=== PATIENT | female | born 1975 | race Hispanic/Latino ===

== ENCOUNTER 2018-12-01 09:44 | Emergency (ER) | payer OTHER ==
--- NOTE | 2018-12-01 10:38 | EDPHYS ---
Physician Documentation [facility] Name: Antonio Keyes Age: 43 yrs Sex: Female : 1975 Arrival Date: 12/01/2018 Time: 09:47 Bed 14 Private MD: ED Physician Jong Mccoy HPI: 12/01 10:34 This 43 yrs old Female presents to ER via Ambulatory with complaints of Boil. jmm 10:34 The patient presents with an abscess of the back. Onset: The symptoms/episode jmm began/occurred gradually. Possible cause(s): unknown. This is a 43 year old female with a history of htn that presents to the ED with complaints of a draining abscess which ruptured last night. Patient states she experienced immediate relief. Denies fever or chills. . 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 - Social history:: Smoking status: Patient/guardian denies using tobacco, Patient/guardian denies using alcohol, street drugs. - Ebola Screening: : Patient negative for fever greater than or equal to 101.5 degrees Fahrenheit, and additional compatible Ebola Virus Disease symptoms Patient denies exposure to infectious person Patient denies travel to an Ebola-affected area in the 21 days before illness onset No symptoms or risks identified at this time. ROS: 10:34 Constitutional: Negative for fever, chills, and weight loss, Cardiovascular: Negative jmm for chest pain, palpitations, and edema, Respiratory: Negative for shortness of breath, cough, wheezing, and pleuritic chest pain. 10:34 Skin: Positive for abscess. 10:34 All other systems are negative. Exam: 10:34 Constitutional: This is a well developed, well nourished patient who is awake, alert, jmm and in no acute distress. Head/Face: atraumatic. Eyes: EOMI, no conjunctival erythema appreciated ENT: Moist Mucus Membranes Neck: Trachea midline, Supple Chest/axilla: Normal chest wall appearance and motion. Cardiovascular: Regular rate and rhythm. No edema appreciated Respiratory: Normal respirations, no respiratory distress appreciated Abdomen/GI: Non distended, soft Back: Normal ROM 10:34 Skin: a small non fluctuant abscess is noted at the right lower back, no surrounding erythema or induration is appreciated. Non tender to palpation. 10:34 Neuro: Orientation: is normal, Mentation: is normal, Memory: is normal. 10:34 Psych: Behavior/mood is pleasant, cooperative. Vital Signs: 10:07 BP 148 / 80; Pulse 67; Resp 17; Pulse Ox 99% on R/A; Weight 81.65 kg; Height 5 ft. 4 sg in. (162.56 cm); Pain 3/10; 10:07 Body Mass Index 30.90 (81.65 kg, 162.56 cm) MDM: 10:33 Patient medically screened. [facility] 10:37 Data reviewed: vital signs, nurses notes. Counseling: I had a detailed discussion with daniel the patient and/or guardian regarding: the historical points, exam findings, and any diagnostic results supporting the discharge/admit diagnosis, the need for outpatient follow up, to return to the emergency department if symptoms worsen or persist or if there are any questions or concerns that arise at home. ED course: patient is alert and non toxic in appearance in the ED. Patient advised to follow up with pcp for reevaluation and otherwise given strict return precautions. patient understood and agrees with the plan of care. . Administered Medications: No medications were administered Disposition: 12/01/18 10:38 Discharged to Home. Impression: Cutaneous abscess of back [any part, except buttock]. - Condition is Stable. - Discharge Instructions: Skin Abscess. - Prescriptions for Bactrim DS 800- 160 mg Oral Tablet - take 1 tablet by ORAL route every 12 hours for 7 days; 14 tablet. - Medication Reconciliation Form, Thank You Letter, Antibiotic Education, Prescription Opioid Use form. - Follow up: Private Physician; When: 2 - 3 days; Reason: Recheck today's complaints, Continuance of care, Re-evaluation by your physician. Addendum: 12/03/2018 09:50 Co-signature as Attending Physician, Jong Mccoy MD I agree with the assessment and k dr plan of care. Signatures: Ricardo Bach RN RN sg Rittger, Kevin, MD MD kdr Mickail, Joel, PA PA jmm Malcolm, Ervin, RN RN rv Corrections: (The following items were deleted from the chart) 12/01 10:44 10:38 12/01/2018 10:38 Discharged to Home. Impression: Cutaneous abscess of back [any rv part, except buttock]. Condition is Stable. Forms are Medication Reconciliation Form, Thank You Letter, Antibiotic Education, Prescription Opioid Use. Follow up: Private Physician; When: 2 - 3 days; Reason: Recheck today's complaints, Continuance of care, Re-evaluation by your physician. marry
--- NOTE | 2018-12-01 10:38 | ER ---
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 concerned for staph infection and has a sx scheduled, a hysterectomy soon. Transition of care: patient was not received from another setting of care. Onset of symptoms was December 01, 2018. Risk Assessment: Do you want to hurt yourself or someone else? Patient reports no desire to harm self or others. Initial Sepsis Screen: Does the patient meet any 2 criteria? No. Patient's initial sepsis screen is negative. Does the patient have a suspected source of infection? Yes: Skin breakdown/wound. Care prior to arrival: None. 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 - Social history:: Smoking status: Patient/guardian denies using tobacco, Patient/guardian denies using alcohol, street drugs. - Ebola Screening: : Patient negative for fever greater than or equal to 101.5 degrees Fahrenheit, and additional compatible Ebola Virus Disease symptoms Patient denies exposure to infectious person Patient denies travel to an Ebola-affected area in the 21 days before illness onset No symptoms or risks identified at this time. Screenin:43 Abuse screen: Denies threats or abuse. Denies injuries from another. Nutritional rv screening: No deficits noted. Tuberculosis screening: No symptoms or risk factors identified. Fall Risk None identified. Assessment: 10:41 General: Appears in no apparent distress. comfortable, Behavior is calm, cooperative. rv Pain:. 10:42 Pain: Complains of pain in low back area. Neuro: Level of Consciousness is awake, rv alert, obeys commands, Oriented to person, place, time, situation. Cardiovascular: Patient's skin is warm and dry. Respiratory: Airway is patent. GI: No signs and/or symptoms were reported involving the gastrointestinal system. : No signs and/or symptoms were reported regarding the genitourinary system. EENT: No signs and/or symptoms were reported regarding the EENT system. Derm: Skin is intact. Musculoskeletal: No signs and/or symptoms reported regarding the musculoskeletal system. Vital Signs: 10:07 BP 148 / 80; Pulse 67; Resp 17; Pulse Ox 99% on R/A; Weight 81.65 kg; Height 5 ft. 4 sg in. (162.56 cm); Pain 3/10; 10:07 Body Mass Index 30.90 (81.65 kg, 162.56 cm) ED Course: 09:47 Patient arrived in ED. rg4 10:02 Cheko Mosquera PA is PHCP. [facility] 10:02 Jong Mccoy MD is Attending Physician. [facility] 10:07 Triage completed. sg 10:08 Arm band placed on. sg 10:39 Ervin Fowler RN is Primary Nurse. rv 10:43 Patient has correct armband on for positive identification. Bed in low position. Call rv light in reach. Cardiac monitoring not applicable on this patient. 10:43 No provider procedures requiring assistance completed. Patient did not have IV access rv during this emergency room visit. Administered Medications: No medications were administered Outcome: 10:38 Discharge ordered by . [facility] 10:43 Discharged to home ambulatory. rv 10:43 Condition: good 10:43 Discharge instructions given to patient, Instructed on discharge instructions, follow up and referral plans. medication usage, Demonstrated understanding of instructions, follow-up care, medications, Prescriptions given X 1. 10:44 Patient left the ED. rv Signatures: Ricardo Bach, RN RN Cheko Mosquera PA PA jmm Garcia, Rubi rg4 Ervin Fowler RN RN rv Corrections: (The following items were deleted from the chart) 10:43 10:41 General: Appears in no apparent distress. comfortable, Behavior is calm, rv cooperative, rv
[2018-12-01 10:56] VITALS: BP 148/80; O2SAT 99
== END 2018-12-01 10:44 | disposition home or self-care (01) ==
LOC: ER 09:44
DX: L02.212 Cutaneous abscess of back [any part, except buttock and flank] (principal); I10 Essential (primary) hypertension
CPT/HCPCS: 99281

== ENCOUNTER 2021-04-05 18:29 | Emergency (ER) | payer BC, OTHER ==
--- OUTSIDE RECORDS SUMMARY | 2021-04-05 18:32 | XMS REPORT | Continuity of Care Document ---
:1975 Author Organization [facility] t Address [address] [place] [address] Care Team Providers Name Role Phone JOHNNY SANTANA Attending Clinician Unavailable SOMMER Attending Clinician Unavailable HERBERT KNOX Admitting Clinician Unavailable Payers Payer Name Policy Type Policy Number Effective Date Expiration Date S ource Problems This patient has no known problems. Allergies, Adverse Reactions, Alerts Allergy Allergy Status Severity Reaction(s) Onset Inactive Treating Comm ents Source Name Type Date Date Clinician No Known DA Active [facility] NO KNOWN Allergy Active [facility] Medications This patient has no known medications. Vital Signs Vital Name Observation Time Observation Value Comments Source HEIGHT 2019-09-05 00:00:00 154.9 cm WEIGHT 2019-09-05 00:00:00 70.761 kg HEIGHT 2019-09-05 00:00:00 154.9 cm WEIGHT 2019-09-05 00:00:00 70.761 kg Procedures This patient has no known procedures. Encounters Start End Encounter Admission Attending Care Care Encounter Source Date/Time Date/Time Type Type Clinicians Facility Department ID 2019-09-05 2019-09-05 Emergency ER [facility] Emergency [id number] [facility] 17:57:00 17:57:00 2019-08-31 2019-08-31 Emergency [facility] [id number] [place] 00:00:00 00:00:00 [facility] [address] Results Test Description Test Time Test Comments Results Result Comments Source OVA AND PARASITE EXAMINATION 2019-09-10 23:29:00 Test Item Value Reference Range Interpretation Comme nts DIRECT SMEAR - O\\T\\P (BEAKER) No ova or parasites seen No ova or parasites seen (test code = 196) BLOOD [id number] 22:00:00 Test Item Value Reference Range Interpretation Comments CULTURE (BEAKER) (test No growth in 5 days code = 1095) BLOOD [id number] 22:00:00 Test Item Value Reference Range Interpretation Comments CULTURE (BEAKER) (test No growth in 5 days code = 1095) TISSUE [id number] 10:13:00Surgical Pathology Report Case: [id number] Authorizing Provider: Yoel Baker MD Collected: 09/09/2019 12:13 PM Ordering Location: [address] Med/Surg Received: 09/09/2019 01:08 PM Pathologist: Clayton Dumont MD Specimens: A) - Small Bowel, NOS B) - Large Intestine, Colon - Right/Ascending C) - Large Intestine, Colon - Transverse D) - Large Intestine, Colon - Sigmoid A. SMALL BOWEL, BIOPSY: -EXUBERANT LYMPHOID FOLLICLE FORMATION IN THE SUBMUCOSAB. COLON, RIGHT/ASCENDING, BIOPSY: -NO SPECIFIC PATHOLOGIC CHANGEC. COLON, TRANSVERSE, BIOPSY: -NO SPECIFIC PATHOLOGIC CHANGED. COLON, SIGMOID, BIOPSY: -SUBMUCOSAL LYMPHOID AGREGGATE FORMATION Signing Pathologist Direct Phone Line: [phone] signed by Clayton Dumont MD on 09/10/2019 at 10:13 [id number] A is labeled "small bowel" and is received in a formalin-filled container labeled with thepatient's name and surgical pathology number. The specimen consists of two small fragments of crawley soft tissue that measures 0.2 x 0.1 x 0.3 cm in aggregate. The specimen is submitted in its entirety inone cassette. Part B is labeled "large intestine, right ascending" and is received in a formalin-filled container labeled with the patient's name and surgical pathology number. The specimen consists offour small fragment crawley soft tissue that measures 0.4 x 0.2 x 0.1 cm in aggregate. The specimen is is submitted in its entirety. Part C is labeled "large intestine, colon transverse" and is received in a formalin-filled container labeled with the patient's name and surgical pathology number. The specimen consists of two small fragments of crawley soft tissue that measures 0.3 x 0.2 x 0.1 cm in aggregate. The specimen is submitted in its entirety in one cassette. Part D is labeled "large intestine, colon, biopsy" and is received in a formalin-filled container labeled with the patient's name and surgical pathologic number. The specimen consists of three small fragments of crawley-soft tissue that measures0.3 x 0.2 x 0.1 cm in aggregate. The specimen is submitted in its entirety in one cassette. G/Nay. PerformedCOMPREHENSIVE METABOLIC [id number] 05:18:00 Test Item Value Reference Range Interpretation Comments TOTAL PROTEIN 5.9 gm/dL 6.0-8.5 L (BEAKER) (test code = 770) ALBUMIN (BEAKER) 3.7 g/dL 3.5-5.0 (test code = 1145) ALKALINE PHOSPHATASE 51 U/L 30-115 (BEAKER) (test code = 346) BILIRUBIN TOTAL 0.4 mg/dL 0.1-1.2 (BEAKER) (test code = 377) SODIUM (BEAKER) (test 142 meq/L 135-148 code = 381) POTASSIUM (BEAKER) 3.4 meq/L 3.6-5.5 L (test code = 379) CHLORIDE (BEAKER) 111 meq/L 98-106 H (test code = 382) CO2 (BEAKER) (test 22 meq/L 20-29 code = 355) BLOOD UREA NITROGEN 3 mg/dL 10-26 L (BEAKER) (test code = 354) CREATININE (BEAKER) 0.59 mg/dL 0.50-1.20 (test code = 358) GLUCOSE RANDOM 96 mg/dL 70-110 (BEAKER) (test code = 652) CALCIUM (BEAKER) 8.4 mg/dL 8.5-10.5 L (test code = 697) AST (SGOT) (BEAKER) 23 U/L 5-40 (test code = 353) ALT (SGPT) (BEAKER) 36 U/L 5-50 (test code = 347) EGFR (BEAKER) (test 111 ESTIMATE D GFR IS code = 1092) mL/min/1.73 sq NOT ACCURA TE m CREATININE CLEARANCE IN PREDICTING GLOMERULAR FILTRATION RATE . ESTIMATED GFR I S NOT APPLICABLE FOR DIALYSIS PATIEN TS. Platform Mill Supervisor ID - [id number] W/PLT COUNT & AUTO [id number] 04:52:00 Test Item Value Reference Range Interpretation Comments WHITE BLOOD CELL COUNT (BEAKER) 5.7 K/ L 4.0-10.0 (test code = 775) RED BLOOD CELL COUNT (BEAKER) 4.18 M/ L 4.00-5.00 (test code = 761) HEMOGLOBIN (BEAKER) (test code = 11.3 GM/DL 12.0-15.5 L 410) HEMATOCRIT (BEAKER) (test code = 35.1 % 36.0-46.0 L 411) MEAN CORPUSCULAR VOLUME (BEAKER) 84.0 fL 82.0-99.0 (test code = 753) MEAN CORPUSCULAR HEMOGLOBIN 27.0 pg 27.0-33.0 (BEAKER) (test code = 751) MEAN CORPUSCULAR HEMOGLOBIN CONC 32.2 GM/DL 32.0-36.0 (BEAKER) (test code = 752) RED CELL DISTRIBUTION WIDTH 13.3 % 12.0-15.0 (BEAKER) (test code = 412) PLATELET COUNT (BEAKER) (test 195 K/CU MM 150-430 code = 756) MEAN PLATELET VOLUME (BEAKER) 10.4 fL 6.0-11.5 (test code = 754) NUCLEATED RED BLOOD CELLS 0 /100 WBC 0-0 (BEAKER) (test code = 413) NEUTROPHILS RELATIVE PERCENT 53 % (BEAKER) (test code = 429) LYMPHOCYTES RELATIVE PERCENT 36 % (BEAKER) (test code = 430) MONOCYTES RELATIVE PERCENT 6 % (BEAKER) (test code = 431) EOSINOPHILS RELATIVE PERCENT 4 % (BEAKER) (test code = 432) BASOPHILS RELATIVE PERCENT 1 % (BEAKER) (test code = 437) NEUTROPHILS ABSOLUTE COUNT 3.04 K/ L 1.80-8.00 (BEAKER) (test code = 670) LYMPHOCYTES ABSOLUTE COUNT 2.08 K/ L 1.48-4.50 (BEAKER) (test code = 414) MONOCYTES ABSOLUTE COUNT (BEAKER) 0.34 K/ L 0.00-1.30 (test code = 415) EOSINOPHILS ABSOLUTE COUNT 0.23 K/ L 0.00-0.50 (BEAKER) (test code = 416) BASOPHILS ABSOLUTE COUNT (BEAKER) 0.03 K/ L 0.00-0.20 (test code = 417) IMMATURE GRANULOCYTES-RELATIVE 0 % 0-0 PERCENT (BEAKER) (test code = 2801) CT, [id number] 12:44:00FINAL REPORT CT of the abdomen and pelvis, without contrast Clinical History: Diarrhea Technique: CT of the abdomen and pelvis is performed without intravenous contrast administration. This exam was performed according to our departmental dose optimization program which includes automated exposure control, adjustment of the mA and/or kV according to patient's size and/or use of iterative reconstructive technique. Comparison Film: None Discussion: Visualized lower thorax is unremarkable. No liver lesion is identified on this noncontrast exam. There is no biliary ductal dilatation, gallbladder is normal. The spleen, pancreas, and adrenal glands are unremarkable. Kidneys demonstrate no hydronephrosis, contour deforming lesion, or radiopaque stone. No bowel obstruction. Note bowel evaluation is suboptimal in the absence of IV and oral contrast. Question mild wall thickening versus underdistention of the descending colon, and sigmoid colon. Appendix appears normal. In the pelvis, bladder is unremarkable. Uterus is absent. No adnexal mass. There is trace pelvic free fluid, of uncertain etiology. No free air, or lymphadenopathy. Osseous structures are intact. Impression: Question mild wall thickening versus underdistention of the descending and sigmoid colon, correlate clinically for colitis. Trace pelvic free fluid, etiology is unclear. No abscess or drainable collection.Signed: Farshad Ocaiso MDReport Verified Date/Time: 09/08/2019 12:44:21 Reading Location: [facility] C013X [facility] Consult Reading Room -COV2/RT-PCR ([facility])2019-09-08 08:28:00 Test Item Value Reference Range Interpretation Comments SARS-COV2/RT-PCR (test code = Negative Not Detected, Negative [id number]) SARS-COV-2 PERFORMING LAB CPL (test code = 0278990) STOOL CULTURE + SHIGA [id number] 08:19:00 Test Item Value Reference Range Interpretation Comments CULTURE (BEAKER) No Salmonella, Shigella (test code = 1095) or Campylobacter isolated COMPREHENSIVE METABOLIC [id number] 06:10:00 Test Item Value Reference Range Interpretation Comments TOTAL PROTEIN 5.6 gm/dL 6.0-8.5 L Specimen sligh tly (BEAKER) (test code = hemoly zed 770) ALBUMIN (BEAKER) 3.5 g/dL 3.5-5.0 Specimen sl ightly (test code = 1145) hemolyzed ALKALINE PHOSPHATASE 48 U/L 30-115 (BEAKER) (test code = 346) BILIRUBIN TOTAL 0.4 mg/dL 0.1-1.2 Specimen sli ghtly (BEAKER) (test code = hemoly zed 377) SODIUM (BEAKER) (test 141 meq/L 135-148 code = 381) POTASSIUM (BEAKER) 3.6 meq/L 3.6-5.5 Specimen slightly (test code = 379) hemolyzed CHLORIDE (BEAKER) 111 meq/L 98-106 H (test code = 382) CO2 (BEAKER) (test 21 meq/L 20-29 code = 355) BLOOD UREA NITROGEN 5 mg/dL 10-26 L (BEAKER) (test code = 354) CREATININE (BEAKER) 0.59 mg/dL 0.50-1.20 Specimen slightly (test code = 358) hemolyzed GLUCOSE RANDOM 99 mg/dL 70-110 (BEAKER) (test code = 652) CALCIUM (BEAKER) 8.2 mg/dL 8.5-10.5 L (test code = 697) AST (SGOT) (BEAKER) 21 U/L 5-40 Specimen slightly (test code = 353) hemolyzed ALT (SGPT) (BEAKER) 32 U/L 5-50 Specimen slightly (test code = 347) hemolyzed EGFR (BEAKER) (test 111 ESTIMATE D GFR IS code = 1092) mL/min/1.73 sq NOT ACCURA TE m CREATININE CLEARANCE IN PREDICTING GLOMERULAR FILTRATION RATE . ESTIMATED GFR I S NOT APPLICABLE FOR DIALYSIS PATIEN TS. Platform Mill Supervisor ID - AGONZALEZCBC W/PLT COUNT & AUTO [id number] 05:42:00 Test Item Value Reference Range Interpretation Comments WHITE BLOOD CELL COUNT (BEAKER) 5.4 K/ L 4.0-10.0 (test code = 775) RED BLOOD CELL COUNT (BEAKER) 4.15 M/ L 4.00-5.00 (test code = 761) HEMOGLOBIN (BEAKER) (test code = 11.2 GM/DL 12.0-15.5 L 410) HEMATOCRIT (BEAKER) (test code = 35.0 % 36.0-46.0 L 411) MEAN CORPUSCULAR VOLUME (BEAKER) 84.3 fL 82.0-99.0 (test code = 753) MEAN CORPUSCULAR HEMOGLOBIN 27.0 pg 27.0-33.0 (BEAKER) (test code = 751) MEAN CORPUSCULAR HEMOGLOBIN CONC 32.0 GM/DL 32.0-36.0 (BEAKER) (test code = 752) RED CELL DISTRIBUTION WIDTH 13.2 % 12.0-15.0 (BEAKER) (test code = 412) PLATELET COUNT (BEAKER) (test 200 K/CU MM 150-430 code = 756) MEAN PLATELET VOLUME (BEAKER) 10.3 fL 6.0-11.5 (test code = 754) NUCLEATED RED BLOOD CELLS 0 /100 WBC 0-0 (BEAKER) (test code = 413) NEUTROPHILS RELATIVE PERCENT 53 % (BEAKER) (test code = 429) LYMPHOCYTES RELATIVE PERCENT 35 % (BEAKER) (test code = 430) MONOCYTES RELATIVE PERCENT 7 % (BEAKER) (test code = 431) EOSINOPHILS RELATIVE PERCENT 5 % (BEAKER) (test code = 432) BASOPHILS RELATIVE PERCENT 1 % (BEAKER) (test code = 437) NEUTROPHILS ABSOLUTE COUNT 2.83 K/ L 1.80-8.00 (BEAKER) (test code = 670) LYMPHOCYTES ABSOLUTE COUNT 1.87 K/ L 1.48-4.50 (BEAKER) (test code = 414) MONOCYTES ABSOLUTE COUNT (BEAKER) 0.37 K/ L 0.00-1.30 (test code = 415) EOSINOPHILS ABSOLUTE COUNT 0.24 K/ L 0.00-0.50 (BEAKER) (test code = 416) BASOPHILS ABSOLUTE COUNT (BEAKER) 0.06 K/ L 0.00-0.20 (test code = 417) IMMATURE GRANULOCYTES-RELATIVE 0 % 0-0 PERCENT (BEAKER) (test code = 2801) POCT-GLUCOSE [id number] 10:23:00 Test Item Value Reference Range Interpretation Comments POC-GLUCOSE METER 83 mg/dL 70-110 : TESTED A T [facility] 1317 (BEAKER) (test code = [address]) [facility] 77 478: Platform Mill Supervisor/Techni blanquita ID = [id number] for Tika Gonzalez COMPREHENSIVE METABOLIC [id number] 06:15:00 Test Item Value Reference Range Interpretation Comments TOTAL PROTEIN 6.4 gm/dL 6.0-8.5 (BEAKER) (test code = 770) ALBUMIN (BEAKER) 4.0 g/dL 3.5-5.0 (test code = 1145) ALKALINE PHOSPHATASE 60 U/L 30-115 (BEAKER) (test code = 346) BILIRUBIN TOTAL 0.6 mg/dL 0.1-1.2 (BEAKER) (test code = 377) SODIUM (BEAKER) (test 140 meq/L 135-148 code = 381) POTASSIUM (BEAKER) 3.2 meq/L 3.6-5.5 L (test code = 379) CHLORIDE (BEAKER) 106 meq/L 98-106 (test code = 382) CO2 (BEAKER) (test 21 meq/L 20-29 code = 355) BLOOD UREA NITROGEN 7 mg/dL 10-26 L (BEAKER) (test code = 354) CREATININE (BEAKER) 0.66 mg/dL 0.50-1.20 (test code = 358) GLUCOSE RANDOM 87 mg/dL 70-110 (BEAKER) (test code = 652) CALCIUM (BEAKER) 9.0 mg/dL 8.5-10.5 (test code = 697) AST (SGOT) (BEAKER) 40 U/L 5-40 (test code = 353) ALT (SGPT) (BEAKER) 50 U/L 5-50 (test code = 347) EGFR (BEAKER) (test 97 mL/min/1.73 ESTIMA LOBO GFR IS code = 1092) sq m NOT ACCURATE CREATININE CLEARANCE IN PREDICTING GLOMERULAR FILTRATION RATE . ESTIMATED GFR I S NOT APPLICABLE FOR DIALYSIS PATIEN TS. Platform Mill Supervisor ID - [id number] W/PLT COUNT & AUTO [id number] 05:52:00 Test Item Value Reference Range Interpretation Comments WHITE BLOOD CELL COUNT (BEAKER) 6.7 K/ L 4.0-10.0 (test code = 775) RED BLOOD CELL COUNT (BEAKER) 4.78 M/ L 4.00-5.00 (test code = 761) HEMOGLOBIN (BEAKER) (test code = 12.8 GM/DL 12.0-15.5 410) HEMATOCRIT (BEAKER) (test code = 39.8 % 36.0-46.0 411) MEAN CORPUSCULAR VOLUME (BEAKER) 83.3 fL 82.0-99.0 (test code = 753) MEAN CORPUSCULAR HEMOGLOBIN 26.8 pg 27.0-33.0 L (BEAKER) (test code = 751) MEAN CORPUSCULAR HEMOGLOBIN CONC 32.2 GM/DL 32.0-36.0 (BEAKER) (test code = 752) RED CELL DISTRIBUTION WIDTH 13.3 % 12.0-15.0 (BEAKER) (test code = 412) PLATELET COUNT (BEAKER) (test 243 K/CU MM 150-430 code = 756) MEAN PLATELET VOLUME (BEAKER) 10.3 fL 6.0-11.5 (test code = 754) NUCLEATED RED BLOOD CELLS 0 /100 WBC 0-0 (BEAKER) (test code = 413) NEUTROPHILS RELATIVE PERCENT 63 % (BEAKER) (test code = 429) LYMPHOCYTES RELATIVE PERCENT 26 % (BEAKER) (test code = 430) MONOCYTES RELATIVE PERCENT 7 % (BEAKER) (test code = 431) EOSINOPHILS RELATIVE PERCENT 3 % (BEAKER) (test code = 432) BASOPHILS RELATIVE PERCENT 1 % (BEAKER) (test code = 437) NEUTROPHILS ABSOLUTE COUNT 4.18 K/ L 1.80-8.00 (BEAKER) (test code = 670) LYMPHOCYTES ABSOLUTE COUNT 1.76 K/ L 1.48-4.50 (BEAKER) (test code = 414) MONOCYTES ABSOLUTE COUNT (BEAKER) 0.47 K/ L 0.00-1.30 (test code = 415) EOSINOPHILS ABSOLUTE COUNT 0.22 K/ L 0.00-0.50 (BEAKER) (test code = 416) BASOPHILS ABSOLUTE COUNT (BEAKER) 0.05 K/ L 0.00-0.20 (test code = 417) IMMATURE GRANULOCYTES-RELATIVE 0 % 0-0 PERCENT (BEAKER) (test code = 2801) POCT-GLUCOSE [id number] 22:13:00 Test Item Value Reference Range Interpretation Comments POC-GLUCOSE METER 117 mg/dL 70-110 H : TESTED A T [facility] 1317 (BEAKER) (test code [address], = 1538) [facility] 77 478: Platform Mill Supervisor/Techni blanquita ID = [id number] for Matthew Raman STOOL PATH [id number] 11:33:00 Test Item Value Reference Range Interpretation Comments PATHOGEN EXAM CHARGED (BEAKER) (test Done code = 2381) SHIGA TOXIN [id number] 11:32:00 Test Item Value Reference Range Interpretation Comments SHIGA TOXIN 1 (BEAKER) (test Not detected Not detected code = 2177) SHIGA TOXIN 2 (BEAKER) (test Not detected Not detected code = 2179) C. DIFFICILE GDH [id number] 20:35:00 Test Item Value Reference Range Interpretation Comments CDT TOXIN (test code Negative Negative = [id number]) CDT GDH ANTIGEN (test Negative Negative No ind ication of code = [id number]) Clostridi um difficile infection and n o colonization. Discontinue ent jelani isolation and t herapy. Testing performed by [employer] Rapid Cassette Assay. For GDH, published sensitivity of the assay is 98.7% compared to cytotoxicity testing. For Toxin AB, published sensitivity is 87.8% and specificity 99.4% compared to cytotoxicity testing.Verification of kit performance was done by the [facility] Microbiology Lab prior to clinical use.COMPREHENSIVE METABOLIC [id number] 20:02:00 Test Item Value Reference Range Interpretation Comments TOTAL PROTEIN 7.5 gm/dL 6.0-8.5 (BEAKER) (test code = 770) ALBUMIN (BEAKER) 4.7 g/dL 3.5-5.0 (test code = 1145) ALKALINE PHOSPHATASE 66 U/L 30-115 (BEAKER) (test code = 346) BILIRUBIN TOTAL 0.8 mg/dL 0.1-1.2 (BEAKER) (test code = 377) SODIUM (BEAKER) (test 142 meq/L 135-148 code = 381) POTASSIUM (BEAKER) 3.6 meq/L 3.6-5.5 (test code = 379) CHLORIDE (BEAKER) 105 meq/L 98-106 (test code = 382) CO2 (BEAKER) (test 24 meq/L 20-29 code = 355) BLOOD UREA NITROGEN 10 mg/dL 10-26 (BEAKER) (test code = 354) CREATININE (BEAKER) 0.73 mg/dL 0.50-1.20 (test code = 358) GLUCOSE RANDOM 87 mg/dL 70-110 (BEAKER) (test code = 652) CALCIUM (BEAKER) 9.9 mg/dL 8.5-10.5 (test code = 697) AST (SGOT) (BEAKER) 20 U/L 5-40 (test code = 353) ALT (SGPT) (BEAKER) 28 U/L 5-50 (test code = 347) EGFR (BEAKER) (test 87 mL/min/1.73 ESTIMA LOBO GFR IS code = 1092) sq m NOT ACCURATE CREATININE CLEARANCE IN PREDICTING GLOMERULAR FILTRATION RATE . ESTIMATED GFR I S NOT APPLICABLE FOR DIALYSIS PATIEN TS. Platform Mill Supervisor ID - JUSTINCBC W/PLT COUNT & AUTO [id number] 19:44:00 Test Item Value Reference Range Interpretation Comments WHITE BLOOD CELL COUNT (BEAKER) 8.6 K/ L 4.0-10.0 (test code = 775) RED BLOOD CELL COUNT (BEAKER) 5.15 M/ L 4.00-5.00 H (test code = 761) HEMOGLOBIN (BEAKER) (test code = 13.9 GM/DL 12.0-15.5 410) HEMATOCRIT (BEAKER) (test code = 43.1 % 36.0-46.0 411) MEAN CORPUSCULAR VOLUME (BEAKER) 83.7 fL 82.0-99.0 (test code = 753) MEAN CORPUSCULAR HEMOGLOBIN 27.0 pg 27.0-33.0 (BEAKER) (test code = 751) MEAN CORPUSCULAR HEMOGLOBIN CONC 32.3 GM/DL 32.0-36.0 (BEAKER) (test code = 752) RED CELL DISTRIBUTION WIDTH 13.3 % 12.0-15.0 (BEAKER) (test code = 412) PLATELET COUNT (BEAKER) (test 272 K/CU MM 150-430 code = 756) MEAN PLATELET VOLUME (BEAKER) 10.1 fL 6.0-11.5 (test code = 754) NUCLEATED RED BLOOD CELLS 0 /100 WBC 0-0 (BEAKER) (test code = 413) NEUTROPHILS RELATIVE PERCENT 68 % (BEAKER) (test code = 429) LYMPHOCYTES RELATIVE PERCENT 25 % (BEAKER) (test code = 430) MONOCYTES RELATIVE PERCENT 5 % (BEAKER) (test code = 431) EOSINOPHILS RELATIVE PERCENT 1 % (BEAKER) (test code = 432) BASOPHILS RELATIVE PERCENT 1 % (BEAKER) (test code = 437) NEUTROPHILS ABSOLUTE COUNT 5.84 K/ L 1.80-8.00 (BEAKER) (test code = 670) LYMPHOCYTES ABSOLUTE COUNT 2.13 K/ L 1.48-4.50 (BEAKER) (test code = 414) MONOCYTES ABSOLUTE COUNT (BEAKER) 0.47 K/ L 0.00-1.30 (test code = 415) EOSINOPHILS ABSOLUTE COUNT 0.12 K/ L 0.00-0.50 (BEAKER) (test code = 416) BASOPHILS ABSOLUTE COUNT (BEAKER) 0.05 K/ L 0.00-0.20 (test code = 417) IMMATURE GRANULOCYTES-RELATIVE 0 % 0-0 PERCENT (BEAKER) (test code = 2801) UTERUS,OTHER THAN [id number] 12:55:00 RUN DATE: 12/07/18 [facility] PAGE 1 RUN TIME: 1357 Specimen Inquiry RUN USER: INTERFACE PATIENT: AMANDA NOVOA LOC: TERRANCE #: [id number] AGE/SX: 43/F ROOM: [facility] RE12/06/18REG DR: Amalia Bunch MD : 75 BED: A DIS: STATUS: ADM Dwight TLOC: SPEC #: [id number] RECD: 12/06/18 STATUS: CHELSY RE #: [id number] GIANCARLO: 12/06/18- SUBM DR: Amalia Bunch MD ENTERED: 12/06/18 SP TYPE: UTERUSOTH OTHR DR: Joanie Treviño MD ORDERED: LEVEL V SURGICA CODES: [id number] - UTERUS, NOS COPIES TO: Amalia Bunch MD [address] [place] [address] [email or web address] Joanie Treviño MD [address] [place] [address] PROCEDURES: LEVEL V SURGICA (Incomplete) TISSUES: UTERUS, NOS - UTERUS, CERVIX AND LEFT FALLOPIAN TUBE CLINICAL HISTORY 43 year old, uterine fibroids, menorrhagia, pelvic pain (kr) FINAL DIAGNOSIS Uterus, left fallopian tube, hysterectomy and left salpingectomy: cervix - no significant pathologic alteration endometrium - benign, early secretory phase with glandular and stromal breakdown myometrium - leiomyomas uterine serosa - benign fibrous adhesions left fallopian tube - benign paratubal cyst CPT code(s): 52419 lsh/kr dt: 12/07/18 CONTINUED ON NEXT PAGE RUN DATE: 12/07/18 [facility] PAGE 2 RUN TIME: 1357 Specimen Inquiry RUN USER: INTERFACE SPEC #: [id number] PATIENT: AMANDA NOVOA #[id number] (Continued)------ ------ GROSSDESCRIPTION ANATOMIC SOURCE OF TISSUE (per Requisition): Uterus, cervix, left tube The specimen is received in formalin in a container labeled with the patient's name and designated "uterus, cervix, left tube". The specimen consists of a 275 gm, 10.0 x 10.0 x 7.5 cm supracervically amputated fragmented uterus with a detached cervix and a detached 1.0 cm in length and 0.5 cm in diameter fimbriated fallopian tube. The uterine serosa is crawley-pink, hyperemic and nodular with multiple adhesions. The 3.5 cm ectocervix displays a central cm slit-like os. The endometrium is crawley-red and hemorrhagic with a thickness measuring up to .0.1 cm. The myometrium is trabeculated witha wall thickness measuring up to 5.0 cm. There are four well-circumscribed nodules, 1.0 to 4.5 cm. The cut surfaces are crawley and whorled. There are no areas of hemorrhage or necrosis. The fallopian tube is pink-purple and hyperemic with a 1.0 cm clear, serous fluid- filled unremarkable paratubal cyst. The lumen is pinpoint. Section code: A1 - cervix, A2 - anterior endomyometrium, A3 - posterior endomyometrium and nodule, A4 - serosal adhesions, A5 - three nodules, A6 - enti re fallopian tube. oralia 12/06/18 @ 1433 Signed Arelis Mcnulty MD 12/07/18 1255 END OF REPORT HGB [id number] 04:44:00 Test Item Value Reference Range Interpretation Comments HEMOGLOBIN (test code = HGB) 10.6 g/dL 10.7-13.9 L HEMATOCRIT (test code = HCT) 33.0 % 32.1-42.1 N UR HCG [id number] 08:34:00 Test Item Value Reference Range Interpretation Comments UR HCG QUAL (test NEGATIVE 1. Very di lute urine code = HCGQLU) specimens, as indicated by a lowspecific g ravity, may not contain rep resentative levels ofhCG. 2 . False negative result s may occur when the levels of hCGare below the sensi tivity level of the test. If is still suspec lobo, a first morningurine sp ecimen should be colle cted 48 hours later and tested. PROTHROMBIN [id number] 11:09:00 Test Item Value Reference Range Interpretation Comments PROTHROMBIN TIME PATIENT (test code 11.6 secs 10.4-12.4 N = PTP) THROMBOPLASTIN TIME [id number] 11:09:00 Test Item Value Reference Range Interpretation Comments THROMBOPLASTIN TIME PARTIAL (test 33.8 secs 22-38 N code = PTT) HCG SERUM [id number] 10:41:00 Test Item Value Reference Range Interpretation Comments HCG SERUM QUAL (test code = HCGQL) NEGATIVE CBC W/AUTO [id number] 10:25:00 Test Item Value Reference Range Interpretation Comments WHITE BLOOD CELL (test code = WBC) 5.4 K/mm3 6.6-12.1 L RED BLOOD CELL (test code = RBC) 4.92 M/mm3 3.45-5.01 N HEMOGLOBIN (test code = HGB) 12.5 g/dL 10.7-13.9 N HEMATOCRIT (test code = HCT) 40.8 % 32.1-42.1 N MEAN CELL VOLUME (test code = MCV) 83 fL 84.1-94.8 L MEAN CELL HGB (test code = MCH) 25.4 pg 27-35 L MEAN CELL HGB CONCETRATION (test 30.6 gm/dL 32.2-34.1 L code = MCHC) RED CELL DISTRIBUTION WIDTH (test 14.7 % 12.4-16.5 N code = RDW) PLATELET COUNT (test code = PLT) 260 K/mm3 133-385 N IMMATURE PLATELET FRACTION (test 0.0 % 0.0-10.8 N code = IPF) MEAN PLATELET VOLUME (test code = 10.8 fl 9.1-12.7 N MPV) NEUTROPHIL % (test code = NT%) 53.9 % 56.5-79.4 L LYMPHOCYTE % (test code = LY%) 37.3 % 14.3-34.3 H MONOCYTE % (test code = MO%) 5.7 % 5.1-10.4 N EOSINOPHIL % (test code = EO%) 2.2 % 0.1-3.0 N BASOPHIL % (test code = BA%) 0.7 % 0.1-1.0 N NEUTROPHIL # (test code = NT#) 2.9 K/mm3 LYMPHOCYTE # (test code = LY#) 2.0 K/mm3 MONOCYTE # (test code = MO#) 0.3 K/mm3 EOSINOPHIL # (test code = EO#) 0.12 K/mm3 BASOPHIL # (test code = BA#) 0.0 K/mm3 RBC MORPHOLOGY REQUIRED (test code NORMAL NORMAL = RBCM) PLATELET MORPHOLOGY REQUIRED (test NORMAL NORMAL code = PLTMR) - XR L-SPINE 2/3 [id number] 01:48:00 Patient Name: AMANDA NOVOA Unit No: [id number] EXAMS: CPT CODE: [id number] XR L-SPINE 2/3 VIEWS [id number] EXAM: CR, XR L-SPINE 2/3 VIEWS: 09/18/2018, 0056 hours History: Right lower quadrant pain. Lower back pain. COMPARISON: None. FINDINGS: Frontal and lateral view of the lumbar spine is submitted. 5 nonrib-bearing lumbar type vertebral bodies are present. There is normal alignment and height of the lumbar spine vertebral bodies. Intervertebral disc spaces are unremarkable. Sacroiliac joints and pubic symphysis is unremarkable. No acute fracture or dislocation ofthe lumbar spine seen. If indicated, follow-up radiograph or MRI can be obtained for completeassessment. IMPRESSION: 1. No acute fracture or dislocation of the lumbar spine seen. SL:MARCUS-H at 0148 Reported and signed by: David Cuevas M.D. CC: Amalia Bunch MD; Ramírez Martinez MD Technologist: RT Cat Trnscrbd D/ (0148) [email or web address] Orig Print D/T: S: 09/18/2018 (0151) [facility] NAME: AMANDA NOVOA Radiology Department PHYS: [id number] - Ramírez Martinez MD [address] : 1975 AGE: 43 SEX: F [place], [place] [address] LOC: [facility] PHONE #: [phone] EXAM DATE: 09/18/2018 STATUS: PRE ER FAX #:[phone] RAD NO: Page 1 Signed ReportCOMPREHENSIVE METABOLIC [id number] 01:41:00 Test Item Value Reference Range Interpretation Comments SODIUM (test code = NA) 140 mEq/L 135-145 N POTASSIUM (test code = K) 4.0 mEq/L 3.5-5.0 N CHLORIDE (test code = CL) 104 mEq/L 100-115 N CARBON DIOXIDE (test code = CO2) 26 mEq/L 22-31 N ANION GAP (test code = GAP) 13.80 10-20 N GLUCOSE (test code = GLU) 91 mg/dL 65-110 N BLOOD UREA NITROGEN (test code = 13 mg/dL 7-18 N BUN) GLOMERULAR FILTRATION RATE (test 91 ml/min >60 N code = GFR) CREATININE (test code = CREAT) 0.7 mg/dL 0.5-1.0 N TOTAL PROTEIN (test code = PROT) 7.3 gm/dL 6.3-8.2 N ALBUMIN (test code = ALB) 3.9 gm/dL 3.4-4.8 N CALCIUM (test code = CA) 8.8 mg/dL 8.4-10.2 N BILIRUBIN TOTAL (test code = BILT) 0.2 mg/dL 0.2-1.0 N SGOT/AST (test code = AST) 23 units/L 15-37 N SGPT/ALT (test code = ALT) 29 units/L 12-78 N ALKALINE PHOSPHATASE TOTAL (test 78 units/L 46-116 N code = ALKP) UA RFLX MICR CULT IF [id number] 00:49:00 Test Item Value Reference Range Interpretation Comments UA COLOR (test code = COLU) YELLOW YELLOW UA APPEARANCE (test code = HAZY CLEAR APPU) UA GLUCOSE DIPSTICK (test code NEGATIVE NEGATIVE = DGLUU) UA BILIRUBIN DIPSTICK (test NEGATIVE NEGATIVE code = BILU) UA KETONE DIPSTICK (test code NEGATIVE NEGATIVE = KETU) UA SPECIFIC GRAVITY (test code 1.025 1.001-1.035 N = SGU) UA BLOOD DIPSTICK (test code = NEG NEGATIVE RYLIE) UA PH DIPSTICK (test code = 6.0 5-9 FANY) UA PROTEIN DIPSTICK (test code NEGATIVE NEGATIVE = PROU) UA UROBILINIOGEN DIPSTICK 0.2 EU/dL <=1.0 (test code = URO) UA NITRITE DIPSTICK (test code NEGATIVE NEGATIVE = PETRONA) UA LEUKOCYTE ESTERASE DIPSTICK NEG NEGATIVE (test code = LEUU) UA WBC (test code = WBCU) 0-2 #/hpf NONE SEEN UA RBC (test code = RBCU) 0-2 #/hpf NONE SEEN UA EPITHELIAL CELLS (test code MODERATE #/hpf NONE SEEN A = EPIU) UA BACTERIA (test code = BACU) MODERATE #/hpf NONE SEEN A UA CALCIUM OXALATE CRYSTALS 3-5 #/hpf (test code = CAOXU) Indication for culture: Suprapubic PainUR HCG [id number] 00:49:00 Test Item Value Reference Range Interpretation Comments UR HCG QUAL (test NEGATIVE 1. Very di lute urine code = HCGQLU) specimens, as indicated by a lowspecific g ravity, may not contain rep resentative levels ofhCG. 2 . False negative result s may occur when the levels of hCGare below the sensi tivity level of the test. If is still suspec lobo, a first morningurine sp ecimen should be colle cted 48 hours later and tested. Indication for culture: Suprapubic PainCBC W/AUTO [id number] 00:43:00 Test Item Value Reference Range Interpretation Comments WHITE BLOOD CELL (test code = WBC) 9.0 K/mm3 6.6-12.1 N RED BLOOD CELL (test code = RBC) 4.73 M/mm3 3.45-5.01 N HEMOGLOBIN (test code = HGB) 11.8 g/dL 10.7-13.9 N HEMATOCRIT (test code = HCT) 38.7 % 32.1-42.1 N MEAN CELL VOLUME (test code = MCV) 82 fL 84.1-94.8 L MEAN CELL HGB (test code = MCH) 24.9 pg 27-35 L MEAN CELL HGB CONCETRATION (test 30.5 gm/dL 32.2-34.1 L code = MCHC) RED CELL DISTRIBUTION WIDTH (test 14.7 % 12.4-16.5 N code = RDW) PLATELET COUNT (test code = PLT) 261 K/mm3 133-385 N IMMATURE PLATELET FRACTION (test 0.0 % 0.0-10.8 N code = IPF) MEAN PLATELET VOLUME (test code = 10.7 fl 9.1-12.7 N MPV) NEUTROPHIL % (test code = NT%) 53.1 % 56.5-79.4 L LYMPHOCYTE % (test code = LY%) 37.6 % 14.3-34.3 H MONOCYTE % (test code = MO%) 6.0 % 5.1-10.4 N EOSINOPHIL % (test code = EO%) 2.3 % 0.1-3.0 N BASOPHIL % (test code = BA%) 0.8 % 0.1-1.0 N NEUTROPHIL # (test code = NT#) 4.8 K/mm3 LYMPHOCYTE # (test code = LY#) 3.4 K/mm3 MONOCYTE # (test code = MO#) 0.5 K/mm3 EOSINOPHIL # (test code = EO#) 0.21 K/mm3 BASOPHIL # (test code = BA#) 0.1 K/mm3 RBC MORPHOLOGY REQUIRED (test code NORMAL NORMAL = RBCM) PLATELET MORPHOLOGY REQUIRED (test NORMAL NORMAL code = PLTMR)
[2021-04-05] MEDS ORDERED: HYDROCODONE/CHLORPHEN 5 ML/OSYR ONE (20:02)
[2021-04-05] MEDS ORDERED: ONDANSETRON 4 MG/2 ML VIAL ONE (20:03)
[2021-04-05] MEDS ORDERED: MORPHINE 2 MG/ML SYR ONE (20:03)
[2021-04-05 20:04] LABS: Absolute Lymphocytes (CBC) 2.1 K/uL (0.7-4.9); Hematocrit 39.4 % (36.0-45.0); Lymphocytes % 49.4 % (15.3-44.8); MPV 8.6 fL (7.6-11.3); RBC Red Blood Cell Count 4.81 M/uL (3.86-4.86)
[2021-04-05 20:14] LABS: ALT/SGPT 42 U/L (12-78); AST/SGOT 19 U/L (15-37); Albumin 3.9 g/dL (3.4-5.0); Alkaline Phosphatase 70 U/L (45-117); BUN Blood Urea Nitrogen 11 mg/dL (7-18); Bicarbonate 26 mmol/L (21-32); Bilirubin Direct < 0.1 mg/dL (0-0.2); Bilirubin Total 0.3 mg/dL (0.2-1.0); Glucose Level 104 mg/dL (74-106); Magnesium 2.8 mg/dL (1.8-2.4); Potassium 3.2 mmol/L (3.5-5.1); Protein, Total 7.4 g/dL (6.4-8.2); Sodium Level 141 mmol/L (136-145)
[2021-04-05 20:23] LABS: NT PRO-BNP < 5 pg/mL (<125)
--- NOTE | 2021-04-05 20:47 | RAD REPORT ---
EXAM DESCRIPTION: RAD - Chest Pa And Lat (2 Views) - 04/05/2021 8:18 pm CLINICAL HISTORY: CHEST PAIN COMPARISON: None TECHNIQUE: Frontal and lateral views of the chest were obtained. FINDINGS: The lungs are normal volume with no acute infiltrate, failure or volume overload finding. There is subtle sub centimeter nodularity in the left upper lung field. This is in proximity to an ov erlying cardiac lead. This is possibly external artifact. Heart size is normal and central vasculat ure is within normal limits. No pleural effusion or pneumothorax seen. No acute bony finding noted. No aortic abnormality. IMPRESSION: No acute infiltrates seen. Vague areas of subcentimeter nodularity are present in the left upper lung field in proximity to a ca rdiac lead. This is potentially external artifact rather than true lung finding. Follow-up outpatient two-view chest exam could be performed to see if this nodularity is a persistent finding.
[2021-04-05 21:01] LABS: Protime INR 1.09
[2021-04-05 21:16] LABS: Blood Morphology Comment NOT SEEN (NOT SEEN); Platelet Estimate ADEQ
[2021-04-05 21:47] LABS: SARS-COV-2 RT PCR POSITIVE (NEGATIVE)
--- NOTE | 2021-04-05 22:30 | RAD REPORT ---
EXAM DESCRIPTION: CT - Chest For Pe Angio - 04/05/2021 9:43 pm CLINICAL HISTORY: COUGH COMPARISON: Chest Pa And Lat (2 Views) dated 04/05/2021; BREAST UNI EVERARDO dated 02/26/2007 TECHNIQUE: Dynamically enhanced 3 mm thick images of the chest were obtained during administration o f approximately 150mL Isovue 370 IV contrast. Coronal and oblique MIP reconstruction images were gene rated and reviewed. Exam utilizes a protocol to evaluate the pulmonary arterial tree. All CT scans are performed using dose optimization technique as appropriate and may include automated exposure control or mA/KV adjustment according to patient size. FINDINGS: No pulmonary emboli are identified. The aorta as imaged shows no acute or suspicious finding. No pericardial thickening or effusion. Minimal ground-glass opacities are present in the lingula left upper lobe and trace amounts in the la teral left lower lobe. No PE Blue evident and pulmonary hemorrhage is not suspected. This could be minimal focal infiltrate or possibly atelectasis. No pleural effusion or pleural thickening. No mediastinal or hilar suspicious masses. No chest wall masses or abnormal axillary lymphadenopathy. Patient does have a 20 millimeter focus of asymmetrically dense breast tissue inferior left breast ap proximately 6 o'clock position. No recent mammography or breast sonography at this facility. IMPRESSION: No pulmonary emboli identified. Lingula left lower lobe patchy airspace opacification could be atelectasis or minimal pneumonia. Focal 20 mm left breast mass. If the patient has not had very recent mammography at an outside facili ty, recommendation would be for the patient to be scheduled for diagnostic bilateral mammography and left sonography.
[2021-04-05] MEDS ORDERED: POTASSIUM 25 MEQ EFFERV TAB ONE (22:39)
--- NOTE | 2021-04-05 22:43 | ER ---
Nurse's Notes [facility] Name: Antonio Keyes Age: 46 yrs Sex: Female : 1975 Arrival Date: 04/05/2021 Time: 18:54 Bed 5 Private MD: Diagnosis: Covid 19 pneumonia. Hypokalemia Presentation: 04/05 19:18 Chief complaint: Patient states: I started feeling sick three weeks ago - Pt tested ld1 negative for covid four times. Pt stating she has pain in her lungs and her mid back. Coronavirus screen: At this time, the client does not indicate any symptoms associated with coronavirus-19. Ebola Screen: No symptoms or risks identified at this time. Initial Sepsis Screen: Does the patient meet any 2 criteria? No. Patient's initial sepsis screen is negative. Does the patient have a suspected source of infection? No. Patient's initial sepsis screen is negative. Risk Assessment: Do you want to hurt yourself or someone else? Patient reports no desire to harm self or others. Onset of symptoms was April 05, 2021. 19:18 Method Of Arrival: Ambulatory ld1 19:18 Acuity: AMANDA 4 ld1 Triage Assessment: 19:23 General: Appears in no apparent distress. comfortable, Behavior is calm, cooperative, ld1 appropriate for age. Pain: Complains of pain in back Pain does not radiate. Pain currently is 9 out of 10 on a pain scale. Neuro: Level of Consciousness is awake, alert, obeys commands, Oriented to person, place, time, situation. Cardiovascular: Capillary refill < 3 seconds Patient's skin is warm and dry. Respiratory: Airway is patent Respiratory effort is even, unlabored, Respiratory pattern is regular, symmetrical. GI: Abdomen is round non-distended. : No signs and/or symptoms were reported regarding the genitourinary system. Derm: No signs and/or symptoms reported regarding the dermatologic system. Musculoskeletal: Range of motion: intact in all extremities. 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 - Social history:: Smoking status: Patient denies any tobacco usage or history of. Patient/guardian denies using alcohol. Screenin:36 Abuse screen: Denies threats or abuse. Denies injuries from another. Nutritional as6 screening: No deficits noted. Tuberculosis screening: No symptoms or risk factors identified. Fall Risk None identified. Assessment: 19:35 General: Appears in no apparent distress. Behavior is calm, cooperative. Pain: as6 Complains of pain in back. Neuro: Level of Consciousness is awake, alert, obeys commands, Oriented to person, place, time, situation. Cardiovascular: Capillary refill < 3 seconds Patient's skin is warm and dry. Respiratory: Airway is patent Trachea midline Respiratory effort is even, unlabored, Respiratory pattern is regular, symmetrical. Derm: Skin is intact, is healthy with good turgor. Musculoskeletal: Reports pain in back. 21:00 Respiratory: Reports cough that is dry. mk Vital Signs: 19:18 BP 115 / 95; Pulse 74; Resp 18; Temp 97.5(O); Pulse Ox 100% on R/A; Weight 80.74 kg; ld1 Height 5 ft. 2 in. (157.48 cm); Pain 9/10; 20:00 BP 104 / 70; Pulse 75; Resp 13 S; Pulse Ox 100% on R/A; mk 21:00 BP 105 / 60; Pulse 68; Resp 19 S; Pulse Ox 100% on R/A; mk 22:00 BP 120 / 70; Pulse 71; Resp 15 S; Pulse Ox 99% on R/A; mk 23:00 BP 119 / 68; Pulse 70; Resp 13 S; Pulse Ox 100% on R/A; mk 19:18 Body Mass Index 32.56 (80.74 kg, 157.48 cm) ld1 ED Course: 18:54 Patient arrived in ED. ja2 19:23 Triage completed. ld1 19:23 Arm band placed on right wrist. ld1 19:29 Duncan Lyons, SCOT is Primary Nurse. as6 19:29 Timo Miner MD is Attending Physician. pkl 19:36 Placed in gown. Bed in low position. Call light in reach. Side rails up X 1. Adult w/ as6 patient. hall monitor on. Pulse ox on. NIBP on. Warm blanket given. 20:10 Inserted saline lock: 20 gauge in left antecubital area, using aseptic technique. Blood as6 collected. 20:18 Chest Pa And Lat (2 Views) XRAY In Process Unspecified. EDMS 21:43 CT Chest For PE Angio In Process Unspecified. EDMS 23:15 No provider procedures requiring assistance completed. IV discontinued, intact, mk bleeding controlled, No redness/swelling at site. Pressure dressing applied. Administered Medications: 20:09 Drug: Tussionex Pennkinetic ER (chlorpheniramine-hydrocodone) Suspension 5 ml Route: PO;as6 23:10 Follow up: Response: No adverse reaction mk 20:09 Drug: morphine 2 mg Route: IVP; Site: left antecubital; as6 23:11 Follow up: Response: No adverse reaction; RASS: Alert and Calm (0) mk 20:09 Drug: Zofran (Ondansetron) 4 mg Route: IVP; Site: left antecubital; as6 23:11 Follow up: Response: No adverse reaction mk 22:42 Drug: K-Lyte (potassium) Effervescent Tablet 50 mEq Route: PO; mk 23:11 Follow up: Response: No adverse reaction mk Outcome: 22:42 Discharge ordered by . pkl 23:16 Discharged to home ambulatory, with significant other. mk 23:16 Condition: stable 23:16 Discharge instructions given to patient, Instructed on discharge instructions, follow up and referral plans. medication usage, Demonstrated understanding of instructions, follow-up care, medications, Prescriptions given X 2. 23:16 Patient left the ED. mk Signatures: Dispatcher [employer] EDMS Timo Miner MD MD pkl Dibbern, Lauren RN RN ld1 Anuja Shaw Ashby, RN RN as6 Bhavani Post RN RN georgi Corrections: (The following items were deleted from the chart) 19:25 19:23 Allergies: No Known Allergies; ld1 ld1 19:25 19:23 PMHx: Hypertension; ld1 ld 19:28 19:23 Home Meds: Blood Pressure Medicaton; ld1 ld1
--- NOTE | 2021-04-05 22:43 | EDPHYS ---
Physician Documentation [facility] Name: Antonio Keyes Age: 46 yrs Sex: Female : 1975 Arrival Date: 04/05/2021 Time: 18:54 Bed 5 Private MD: ED Physician Timo Miner HPI: 04/05 20:26 This 46 yrs old Female presents to ER via Ambulatory with complaints of Back pkl Pain. 20:26 The patient presents with pain that is acute. The symptoms are located in the upper pkl back. Onset: The symptoms/episode began/occurred 3 week(s) ago. Associated signs and symptoms: Pertinent positives: chest pain, cough. 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 - Social history:: Smoking status: Patient denies any tobacco usage or history of. Patient/guardian denies using alcohol. ROS: 20:27 Eyes: Negative for injury, pain, redness, and discharge, ENT: Negative for injury, pkl pain, and discharge, Neck: Negative for injury, pain, and swelling. 20:27 Cardiovascular: Negative for chest pain. 20:27 Respiratory: Positive for cough, with no reported sputum. 20:27 Abdomen/GI: Negative for abdominal pain, nausea, vomiting, and diarrhea. 20:27 Back: Positive for pain at rest, of the upper back. 20:27 : Negative for urinary symptoms. 20:27 MS/extremity: Negative for acute changes. 20:27 Skin: Negative for rash. 20:27 Neuro: Negative for altered mental status, loss of consciousness. Exam: 20:27 Head/Face: Normocephalic, atraumatic. Eyes: Pupils equal round and reactive to light, pkl extra-ocular motions intact. Lids and lashes normal. Conjunctiva and sclera are non-icteric and not injected. Cornea within normal limits. Periorbital areas with no swelling, redness, or edema. ENT: Nares patent. No nasal discharge, no septal abnormalities noted. Tympanic membranes are normal and external auditory canals are clear. Oropharynx with no redness, swelling, or masses, exudates, or evidence of obstruction, uvula midline. Mucous membranes moist. Neck: Trachea midline, no thyromegaly or masses palpated, and no cervical lymphadenopathy. Supple, full range of motion without nuchal rigidity, or vertebral point tenderness. No Meningismus. Chest/axilla: Normal chest wall appearance and motion. Nontender with no deformity. No lesions are appreciated. Cardiovascular: Regular rate and rhythm with a normal S1 and S2. No gallops, murmurs, or rubs. Normal PMI, no JVD. No pulse deficits. Respiratory: Lungs have equal breath sounds bilaterally, clear to auscultation and percussion. No rales, rhonchi or wheezes noted. No increased work of breathing, no retractions or nasal flaring. Abdomen/GI: Soft, non-tender, with normal bowel sounds. No distension or tympany. No guarding or rebound. No evidence of tenderness throughout. Back: No spinal tenderness. No costovertebral tenderness. Full range of motion. Skin: Warm, dry with normal turgor. Normal color with no rashes, no lesions, and no evidence of cellulitis. MS/ Extremity: Pulses equal, no cyanosis. Neurovascular intact. Full, normal range of motion. Neuro: Awake and alert, GCS 15, oriented to person, place, time, and situation. Cranial nerves II-XII grossly intact. Motor strength 5/5 in all extremities. Sensory grossly intact. Cerebellar exam normal. Normal gait. Vital Signs: 19:18 BP 115 / 95; Pulse 74; Resp 18; Temp 97.5(O); Pulse Ox 100% on R/A; Weight 80.74 kg; ld1 Height 5 ft. 2 in. (157.48 cm); Pain 9/10; 20:00 BP 104 / 70; Pulse 75; Resp 13 S; Pulse Ox 100% on R/A; mk 21:00 BP 105 / 60; Pulse 68; Resp 19 S; Pulse Ox 100% on R/A; mk 22:00 BP 120 / 70; Pulse 71; Resp 15 S; Pulse Ox 99% on R/A; mk 23:00 BP 119 / 68; Pulse 70; Resp 13 S; Pulse Ox 100% on R/A; mk 19:18 Body Mass Index 32.56 (80.74 kg, 157.48 cm) ld1 MDM: 19:29 Patient medically screened. pkl 22:36 Data reviewed: vital signs, nurses notes, lab test result(s), EKG, radiologic studies. pk ED course: Discussed lab, EKG and imaging studies with patient. Advised quarantine for 5 days. Follow up with PCP in 5 days. Return if necessary. Patient understood instruction. 04/05 19:37 Order name: Basic Metabolic Panel pkl 04/05 19:37 Order name: CBC with Diff pkl 04/05 19:37 Order name: LFT's pkl 04/05 19:37 Order name: Magnesium; Complete Time: 21:19 pkl 04/05 19:37 Order name: NT PRO-BNP; Complete Time: 21:19 pkl 04/05 19:37 Order name: PT-INR; Complete Time: 21:19 pkl 04/05 19:28 Order name: Chest Pa And Lat (2 Views) XRAY; Complete Time: 21:19 kb 04/05 19:37 Order name: Troponin HS; Complete Time: 21:19 pkl 04/05 19:37 Order name: D-Dimer; Complete Time: 21:19 pkl 04/05 19:38 Order name: Basic Metabolic Panel; Complete Time: 21:19 EDMS 04/05 19:38 Order name: CBC with Automated Diff; Complete Time: 21:19 EDMS 04/05 19:38 Order name: Liver (Hepatic) Function; Complete Time: 21:19 EDMS 04/05 19:46 Order name: COVID-19/FLU A+B (Document "Date of Onset" if Symptomatic); Complete Time: pkl :04/05 20:22 Order name: Manual Differential; Complete Time: 21:19 EDMS 04/05 19:37 Order name: EKG; Complete Time: 19:38 pkl 04/05 19:37 Order name: Cardiac monitoring; Complete Time: 19:48 pkl 04/05 19:37 Order name: EKG - Nurse/Tech; Complete Time: 19:59 pkl 04/05 19:37 Order name: IV Saline Lock; Complete Time: 19:48 pkl 04/05 19:37 Order name: Labs collected and sent; Complete Time: 19:48 pkl 04/05 19:37 Order name: O2 Per Protocol; Complete Time: 19:48 pkl 04/05 19:37 Order name: O2 Sat Monitoring; Complete Time: 19:48 pkl 04/05 21:21 Order name: CT Chest For PE Angio; Complete Time: 22:33 pkl Administered Medications: 20:09 Drug: Tussionex Pennkinetic ER (chlorpheniramine-hydrocodone) Suspension 5 ml Route: PO;as6 23:10 Follow up: Response: No adverse reaction mk 20:09 Drug: morphine 2 mg Route: IVP; Site: left antecubital; as6 23:11 Follow up: Response: No adverse reaction; RASS: Alert and Calm (0) mk 20:09 Drug: Zofran (Ondansetron) 4 mg Route: IVP; Site: left antecubital; as6 23:11 Follow up: Response: No adverse reaction mk 22:42 Drug: K-Lyte (potassium) Effervescent Tablet 50 mEq Route: PO; mk 23:11 Follow up: Response: No adverse reaction mk Disposition Summary: 04/05/21 22:42 Discharge Ordered Location: Home pkl Problem: new pkl Symptoms: have improved pkl Condition: Stable pkl Diagnosis - Covid 19 pneumonia. Hypokalemia pkl Followup: pkl - With: Private Physician - When: 5 - 6 days - Reason: Re-evaluation by your physician Discharge Instructions: - Discharge Summary Sheet pkl Forms: - Medication Reconciliation Form pkl - Thank You Letter pkl - Work release form pkl - Antibiotic Education pkl - Prescription Opioid Use pkl Prescriptions: - Diclofenac Sodium 75 mg Oral tablet,delayed release (DR/EC) - take 1 tablet by ORAL route 2 times per day; 20 tablet; Refills: 0, Product pkl Selection Permitted - Zithromax Z-Jong 250 mg Oral Tablet - take 1 tablet by ORAL route as directed for 5 days Day 1 - take two (2) tablets pkl one time. Day 2, 3, 4 , 5 take one (1) tablet once daily.; 6 tablet; Refills: 0, Product Selection Permitted Signatures: Dispatcher [employer] EDMS Miner, Pin, Toyin Torres MD RN RN ld1 Duncan Lyons RN RN as6 Bhavani Post RN RN mk Corrections: (The following items were deleted from the chart) 19: Allergies: No Known Allergies; ld1 ld1 19:23 PMHx: Hypertension; 1 ld 19:23 Home Meds: Blood Pressure Medicaton; 1 20:17 19:38 Chest Single View+RAD.RAD.BRZ ordered. EDMS EDMS
[2021-04-06 00:44] VITALS: TEMP 97.5
[2021-04-06 00:56] VITALS: BP 119/68; O2SAT 100
--- NOTE | 2021-04-07 07:28 | EKG ---
Test Date: 2021-04-05 Test Time: 19:52:41 Clean Out Driller Helper: MEASUREMENT RESULTS: Intervals: Rate: 77 NC: 130 QRSD: 100 QT: 392 QTc: 443 [place]: P: 21 NC: 130 QRS: 100 T: 9 INTERPRETIVE STATEMENTS: Normal sinus rhythm Rightward axis Borderline ECG No previous ECG available for comparison Electronically Signed On 04-07-21 07:26:15 INVESTMENT PROFESSIONAL by Ted Pate
--- NOTE | 2021-04-07 07:28 | EKG ---
Test Date: 2021-04-05 Test Time: 19:52:14 Autocutter: MEASUREMENT RESULTS: Intervals: Rate: 91 AR: QRSD: 90 QT: 458 QTc: 563 [place]: P: AR: QRS: 95 T: 65 INTERPRETIVE STATEMENTS: Age and gender specific ECG analysis Accelerated Junctional rhythm with occasional and consecutive premature ventricular complexes Rightward axis ST elevation, consider inferior injury or acute infarct ACUTE AK / STEMI Consider right ventricular involvement in acute inferior infarct Abnormal ECG No previous ECG available for comparison Electronically Signed On 04-07-21 07:26:16 MAKE UP OPERATOR by Ted Pate
== END 2021-04-05 23:16 | disposition home or self-care (01) ==
LOC: ER 18:29
DX: U07.1 COVID-19 (principal); J12.82 Pneumonia due to coronavirus disease 2019; E87.6 Hypokalemia; I10 Essential (primary) hypertension; Z88.8 Allergy status to other drugs, medicaments and biological substances
CPT/HCPCS: 93005 ×2; 85025; 80048; 36415; 83735; 85610; 85379; 80076; 84484; 83880; 0240U; 71275; 71046; Q9967; J2270; J2405; 96374; 96375; 99284

== ENCOUNTER 2022-07-12 12:50 | Emergency (ER) | payer BC ==
--- OUTSIDE RECORDS SUMMARY | 2022-07-12 12:53 | XMS REPORT | Continuity of Care Document ---
:1975 Author Organization [facility] t Address [address] [facility]. [address] [place] [address] Care Team Providers Name Role Phone SAMUEL WRIGHT Primary Care Physician Unavailable DR SAMUEL WRIGHT Attending Clinician Unavailable [phone] Attending Clinician Unavailable Denita Attending Clinician Unavailable SAMUEL WRIGHT Attending Clinician Unavailable Stella Medina Attending Clinician [phone] DAVID SANTANA Attending Clinician Unavailable XAVIER NOVOA Attending Clinician Unavailable DR SAMUEL WRIGHT Admitting Clinician Unavailable Denita Admitting Clinician Unavailable CLARA KNOX Admitting Clinician Unavailable Payers Payer Name Policy Type Policy Number Effective Date Expiration Date S ource [place] [id number] 2020 00:[place]00 [place] [id number] [place] Problems Condition Condition Condition Status Onset Resolution Last Treating Co mments Source Name Details Category Date Date Treatment Clinician Date Streptococ Streptococ Problem Active S [facility]y amber sore amber Sore 8 Commun i throat Throat 00:00: ty [facility] Nasal Nasal Problem Active [place] congestion Congestion 10-19 Co mmuni 00:00: ty 00 [facility] Fever Fever Problem Active [place] 8 Communi 00:00: ty 00 [facility] Fatigue Fatigue Problem Active [place] 8 Communi 00:00: ty 00 [facility] Cough Cough Problem Active [place] 8 Communi 00:00: ty 00 [facility] COVID-19 Covid-19 Problem Active [facility] 10[facility]19 [facility] 00[facility]: ty [facility] Diarrhea Di[facility] Colitis Colitis Disease [facility] Hypothyroi Hypothyroi Problem Active S weeny dism dism 11-22 Communi 00:00: ty 00 [facility] Seizure Seizure Problem Active [place] 11-22 Communi 00:00: ty 00 [facility] Clinics Allergies, Adverse Reactions, Alerts Allergy Allergy Status Severity Reaction(s) Onset Inactive Treating Comm ents Source Name Type Date Date Clinician No Known DA Active [facility] 00 [facility] NO KNOWN Allergy Active [facility] Dilantin Allergy Active Hallucinatio S weeny to ns Communi [facility] ty e Hospita l Clinics Social History Social Habit Start Date Stop Date Quantity Comments Source History SDOH [facility] Alcohol Std Drinks [facility] Center History SDOH [facility] Alcohol Binge Medical Ce ter Gender identity [facility] Tobacco use and 2019-09-05 2019-09-[address] [facility] exposure 00:00:00 00:00:00 tobacco non-user Medical Center History SDOH 2019-09-05 2019-09-[address] [facility] Alcohol Frequency 00:00:00 00:00:00 Medical Center Alcohol Comment 2019-09-05 2019-09-[address] [facility] 00:[facility]00 [facility] Alcohol intake 2019-08-31 2019-08-31 Lifetime [facility] 00:[facility]:00 non-drinker Hospital (finding) History of Social 2019-08-31 2019-08-[address] function 00:00:00 00:00:00 Hospital Sex Assigned At [birth year] [facility] 00[facility] Hospital Smoking Status Start Date Stop Date Source Never Smoker [facility] Medications Ordered Filled Start Stop Current Ordering Indication Dosage Frequency Signature Comments Components Source Medication Medication Date Date Medication? Clinician (SIG) Name Name Tylenol 325 Tylenol 325 No Tylenol [place] mg mg 10-19 325 mg Communi tabletTake tabletTake 16:55: tabletTake ty 2 tablets 2 tablets 00 2 tablets Hospita by oral by oral by oral l route. route. route. Clinics dexamethaso dexamethaso No dexamethas [place] ne sodium ne sodium 10-19 one sodium Communi phosphate phosphate 16:55: phosphate ty 10 mg/mL 10 mg/mL 00 10 mg/mL [facility] injection injection injection l solutionTak solutionTak solutionTa Clinics e 1 mL by e 1 mL by ke 1 mL by injection injection injection route. route. route. Airborne Airborne No Airborne Swe [place] (ascorbate (ascorbate (ascorbate Communi sodium) sodium) sodium) ty Hospita l Clinics amlodipine amlodipine No amlodipine [place] 10 10 10 Communi mg-benazepr mg-benazepr mg-benazep ty il 40 mg il 40 mg ril 40 mg Ho spita capsule capsule capsule l TAKE 1 TAKE 1 TAKE 1 Clinics CAPSULE BY CAPSULE BY CAPSULE BY MOUTH TWICE MOUTH TWICE MOUTH A DAY A DAY TWICE A DAY amoxicillin amoxicillin No 1capsul BID amoxicilli [place] 500 mg 500 mg e(s) n 500 mg Communi capsule capsule capsule ty Take 1 Take 1 Take 1 Hospita capsule capsule capsule l twice a day twice a day twice a Clinics by oral by oral day by route for route for oral route 10 days. 10 days. for 10 days. dexamethaso dexamethaso No 1mL dexamethas [place] ne sodium ne sodium one sodium Communi phosphate phosphate phosphate ty 10 mg/mL 10 mg/mL 10 mg/mL [facility] injection injection injection l solution solution solution Cli nics Take 1 mL Take 1 mL Take 1 mL by by by injection injection injection route. route. route. Enstilar Enstilar No Enstilar Swe [place] 0.005 0.005 0.005 Communi %-0.064 % %-0.064 % %-0.064 % ty topical topical topical Hospit a foam APPLY foam APPLY foam APPLY l TO AREAS OF TO AREAS OF TO AREAS Clinics PSORIASIS PSORIASIS OF TWICE DAILY TWICE DAILY PSORIASIS FOR 2 FOR 2 TWICE WEEKS/MONTH WEEKS/MONTH DAILY FOR . . 2 WEEKS/ITA H. omeprazole omeprazole No omeprazole [place] 40 mg 40 mg 40 mg Communi capsule,del capsule,del capsule,de ty ayed ayed layed Hospita release release release l TAKE 1 TAKE 1 TAKE 1 Clinics CAPSULE BY CAPSULE BY CAPSULE BY MOUTH EVERY MOUTH EVERY MOUTH DAY DAY EVERY DAY Tylenol 325 Tylenol 325 No 2 Tylenol [place] mg tablet mg tablet 325 mg Com trav Take 2 Take 2 tablet ty tablets by tablets by Take 2 H ospita oral route. oral route. tablets by l oral Clinics route. Vital Signs Vital Name Observation Time Observation Value Comments Source HEIGHT 2019-09-05 00:00:00 154.9 cm WEIGHT 2019-09-05 00:00:00 70.761 kg HEIGHT 2019-09-05 00:00:00 154.9 cm WEIGHT 2019-09-05 00:00:00 70.761 kg Procedures Procedure Date / Time Performed Performing Clinician [facility] e Delivery 2002-10-28 00:00:00 [facility] Delivery 1999-03-18 00:00:00 [facility] Delivery 1997-11-07 00:00:00 [facility] Partial Hysterectomy [facility] Sinus Surgery [facility] Plan of Care Planned Activity Planned Date Details Comments Source Future Scheduled Test 2029-09-08 [facility] Center colon (procedure) [code = 095311617] Future Scheduled Test 2029-09-08 [facility] Center colon (procedure) [code = 078177817] Future Scheduled Test 2029-09-08 [facility] Center colon (procedure) [code = 736865731] Future Scheduled Test 2029-09-08 [facility] Center colon (procedure) [code = 479309667] Future Scheduled Test 2022-11-[address] [facility] 00:00:00 (Season Ended) [code = Medic al Center INFLUENZA VACCINE (Season Ended)] Future Scheduled Test 2022-11-[address] [facility] 00:00:00 (Season Ended) [code = Medic al Center INFLUENZA VACCINE (Season Ended)] Future Scheduled Test 2022-06-19 Screening for [facility] 19:14:14 malignant neoplasm of Hospit al cervix (procedure) [code = 638761883] Future Scheduled Test 2022-06-19 BREAST CANCER [facility] 19:14:14 SCREENING [code = Hospital BREAST CANCER SCREENING] Future Scheduled Test 2022-06-19 COLONOSCOPY SCREENING [facility] 19:14:14 [code = COLONOSCOPY Hospital SCREENING] Future Scheduled Test 2022-06-19 INFLUENZA VACCINE M [facility]ist 19:14:14 [code = INFLUENZA Hospital VACCINE] Future Scheduled Test 2022-06-19 COVID-19 VACCINE (#1) [facility] 19:14:14 [code = COVID-19 Hospital VACCINE (#1)] Future Scheduled Test 2022-06-19 Hepatitis C screening [facility] 19:14:14 (procedure) [code = Hospital 273444572] Future Scheduled Test 2022-06-19 Hepatitis C screening [facility] 19:14:14 (procedure) [code = Hospital 142509237] Future Scheduled Test 2022-06-19 Screening for [facility] 19:14:14 malignant neoplasm of Hospit al cervix (procedure) [code = 766320919] Future Scheduled Test 2022-06-19 BREAST CANCER [facility] 19:14:14 SCREENING [code = Hospital BREAST CANCER SCREENING] Future Scheduled Test 2022-06-19 COLONOSCOPY SCREENING [facility] 19:14:14 [code = COLONOSCOPY Hospital SCREENING] Future Scheduled Test 2022-06-19 INFLUENZA VACCINE [facility] 19:14:14 [code = INFLUENZA Hospital VACCINE] Future Scheduled Test 2022-06-19 COVID-19 VACCINE (#1) [facility] 19:14:14 [code = COVID-19 Hospital VACCINE (#1)] Future Scheduled Test 2022-03-[address] [facility] 00:00:00 (12+) [code = Medical Center DEPRESSION SCREENING (12+)] Future Scheduled Test 2022-03-[address] [facility] 00:00:00 (12+) [code = [facility] DEPRESSION SCREENING (12+)] Diagnostic Test 2021-10-19 rapid strep group A, [facility] Pending 00:00:00 throat [code = rapid Hospita l Clinics strep group A, throat] Diagnostic Test 2021-10-19 rapid SARS CoV 2 Ag, [facility] Pending 00:00:00 QL IA, respiratory Hospital Clinics specimen [code = rapid SARS CoV 2 Ag, QL [place], respiratory specimen] Future Scheduled Test 2020-09-[address] [facility] 00:00:00 Counseling and Medical Cente r Screening (12+) [code = Tobacco Cessation Counseling and Screening (12+)] Future Scheduled Test 2020-09-[address] [facility] 00:00:00 Counseling and Medical Cente r Screening (12+) [code = Tobacco Cessation Counseling and Screening (12+)] Future Scheduled Test 2020-01-[address] [facility] 00:00:00 (procedure) [code = [facility] 17466367] Future Scheduled Test 2020-01-[address] [facility] 00:00:00 (procedure) [code = [facility] 02386268] Future Scheduled Test 1996-01-16 [facility] neoplasm of Medica l Center cervix (procedure) [code = 448958302] Future Scheduled Test 1996-01-16 [facility] [code = 863508049] Future Scheduled Test 1994 DTAP/TDAP/TD VACCINES [facility] 00:00:00 (1 - Tdap) [code = Medical C enter DTAP/TDAP/TD VACCINES (1 - Tdap)] Future Scheduled Test 1994 DTAP/TDAP/TD VACCINES [facility] 00:00:00 (1 - Tdap) [code = Medical C enter DTAP/TDAP/TD VACCINES (1 - Tdap)] Future Scheduled Test 1993 HEPATITIS C SCREENING [facility] 00:00:00 [code = HEPATITIS C Medical Center SCREENING] Future Scheduled Test 1993 HEPATITIS C SCRE[facility]ING [facility] 00:00:00 [code = HEPATITIS C Medical Center SCREENING] Future Scheduled Test 1975 COVID-19 VACCINE (#1) [facility] 00:00:00 [code = COVID-[address] VACCINE (#1)] Future Scheduled Test 1975 COVID-19 VACCINE (#1) [facility] 00:00:00 [code = COVID-[address] VACCINE (#1)] Future Scheduled Test [address] [facility] 00:00:00 (combo) [code = CT Medical C enter Colonography (combo)] Future Scheduled Test 1975 [facility] of [facility]ica l Center colon (procedure) [code = 173178779] Future Scheduled Test 1975 [facility] malignant neoplasm of Medica l Center colon (procedure) [code = 249017795] Future Scheduled Test 1975 Sigmoidoscopy [code = [facility] 00:00:00 Sigmoidoscopy] Medical Trange r Future Scheduled Test [address] [facility] 00:00:00 (combo) [code = CT Medical C enter Colonography (combo)] Future Scheduled Test [facility] malignant neoplasm of Medica l Center colon (procedure) [code = 599872440] Future Scheduled Test 1975 [facility] malignant neoplasm of Medica l Center colon (procedure) [code = 840289290] Future Scheduled Test 1975 Sigmoidoscopy [code = [facility] 00:00:00 Sigmoidoscopy] [facility] En[facility]ters Start End Encounter Admission Attending Care Care Encounter Source Date/Time Date/Time Type Type Clinicians Facility Department ID 2022-07-07 2022-07-07 Outpatient N SAMUEL WRIGHT [facility] CIT Y [id number] 07:53:00 07:53:00 [id number] [facility] 2022-06-07 2022-06-07 Outpatient L_Pena [facility] [id number] [place] 00:00:00 00:00:00 321 [facility] i [facility] Clin[facility] 2022-05-03 2022-05-03 Outpatient L_Adam [facility] [id number] [place] 00:00:00 00:00:00 215 Commun i ty [facility] Clinics 2022-03-30 2022-03-30 Outpatient L_Adam [facility] [id number] [place] 00:00:00 00:00:00 111 Commun i ty [facility]osp[facility] Clinics 2022-02-18 2022-02-18 [facility] [id number] [place] 09:05:00 09:05:00 [id number] [facility] 2022-01-07 2022-01-07 Outpatient BEBETO WRIGHT [facility] [id number] [facility]59[facility]00 [id number] [facility] 2021-11-09 2021-11-09 [facility] [id number] [place] 07:14:00 07:14:00 [id number] [facility] 2021-10-20 2021-10-20 Outpatient L_Adam [facility] [id number] [place] 00:00:00 00:00:00 803 Commun i ty Hospita [facility] Clinics 2021-10-19 2021-10-19 Outpatient L_Adam [facility] [id number] [place] 00:00:00 00:00:00 802 Commun i ty Hospita l Clinics 2021-10-19 2021-10-19 Outpatient Stella Medina [facility] [id number] 00:00:00 00:00:00 [id number] 2021-10-19 2021-10-19 Stella [facility] [place] [facility] [place] [id number] [place] 00:00:00 00:00:00 An Medina APRN, MSN, Hospital - ty [facility]-: [address], CL[address], [place] [address] , Ph. 2021-08-27 2021-08-27 Outpatient BEBETO WRIGHT [facility] [id number] [place] 13:36:00 13:36:00 [id number] [facility] 2021-07-30 2021-07-30 Outpatient BEBETO WRIGHT [facility] [id number] [place] 08:33:00 08:33:00 [id number] [facility] 2021-07-02 2021-07-02 Outpatient SAMUEL SUBRAMANIAN [facility] CIT Y [id number] 10:34:00 10:34:00 [id number] [facility] 2019-09-05 2019-09-05 Emergency ER [facility] Emergency [id number] [facility] 17:57:00 17:57:00 2019-08-31 2019-08-31 Emergency [place], [facility] [id number] [place] 00:00:00 00:00:00 XAVIER [address] 2019-03-29 2019-03-29 Outpatient BEBETO WRIGHT [facility] [id number] [place] 14:28:00 14:28:00 [id number] [facility] 2017-03-10 2017-03-10 Outpatient BEBETO WRIGHT [facility] [id number] [place] 10:59:00 10:59:00 [id number] [facility] 2015-11-13 2015-11-13 Outpatient BEBETO WIRGHT [facility] [id number] [place] 08:36:00 08:36:00 [id number] [facility] 2014-05-30 2014-05-30 Outpatient BEBETO WRIGHT [facility] [id number] [place] 09:57:00 09:57:00 [id number] [facility] Results Test Description Test Time Test Comments Results Result Comments Source OVA AND PARASITE EXAMINATION 2019-09-10 23:29:00 Test Item Value Reference Range Interpretation Comme nts DIRECT SMEAR - O\\T\\P (BEAKER) No ova or parasites seen No ova or parasites seen (test code = 196) BLOOD [id number] 22:00:00 Test Item Value Reference Range Interpretation Comments CULTURE (BEAKER) (test No growth in 5 days code = 1095) BLOOD [id number] 22:00:00 Test Item Value Reference Range Interpretation Comments CULTURE (BEAKER) (test No growth in 5 days code = 1095) TISSUE [id number] 10:13:00Surgical Pathology Report Case: [id number] Authorizing Provider: Yoel Baker MD Collected: 09/09/2019 12:13 PM Ordering Location: [address] Med/Surg Received: 09/09/2019 01:08 PM [...] AGREGGATE FORMATION Signing Pathologist Direct Phone Line: [phone] signed by Clayton Dumont MD on 09/10/2019 at 10:13 [id number] A is labeled "small bowel" and is received in a formalin-filled container labeled with the patient's name and surgical pathology number. The specimen consists of two small fragments of crawley soft tissue that measures 0.2 x 0.1 x 0.3 cm in aggregate. The specimen is submitted in its entirety in one cassette. Part B is labeled "large intestine, right ascending" and is received in a formalin-filled container labeled with the patient's name and surgical pathology number. The specimen consists of four small fragment crawley soft tissue that measures 0.4 x 0.2 x 0.1 cm in aggregate. The specimen is is submitted in its entirety. Part C is labeled "large intestine, colon transverse" and is received in a formalin-filled container labeled with the patient's name and surgical pathology number. The specimen consists of two smallfragments of crawley soft tissue that measures 0.3 x 0.2 x 0.1 cm in aggregate. The specimen is submitted in its entirety in one cassette. Part D is labeled "large intestine, colon, biopsy" and is receivedin a formalin- filled container labeled with the patient's name and surgical pathologic number. The specimen consists of three small fragments of crawley-soft tissue that measures 0.3 x 0.2 x 0.1 cm in aggregate. The specimen is submitted in its entirety in one cassette. FHG/Patrice-Carolyn. PerformedCOMPREHENSIVE METABOLIC [id number] 05:18:00 Test Item Value Reference Range Interpretation [...] S NOT APPLICABLE FOR DIALYSIS PATIEN TS. Chemical Plant Operator ID - [id number] W/PLT COUNT & AUTO [id number] 04:52:00 Test Item Value Reference Range Interpretation [...] PERCENT (BEAKER) (test code = 2801) CT, [id number] 12:44:00FINAL REPORT CT of the abdomen and [...] etiology is unclear. No abscess or drainable collection. Signed: Farshad Ocasioort Verified Date/Time: 09/08/2019 12:44:21 Reading Location: [address] Consult Reading Room SARS-COV2/RT-PCR ([facility])2019-09-08 08:28:00 Test Item Value Reference Range Interpretation Comments SARS-COV2/RT-PCR (test code = Negative Not Detected, Negative [id number]) SARS-COV-2 PERFORMING LAB CPL (test code = 5169093) STOOL CULTURE + SHIGA [id number] 08:19:00 Test Item Value Reference Range Interpretation Comments CULTURE (BEAKER) No Salmonella, Shigella (test code = 1095) or Campylobacter isolated COMPREHENSIVE METABOLIC [id number] 06:10:00 Test Item Value Reference Range Interpretation [...] S NOT APPLICABLE FOR DIALYSIS PATIEN TS. Chemical Plant Operator ID - [id number] W/PLT COUNT & AUTO [id number] 05:42:00 Test Item Value Reference Range Interpretation [...] PERCENT (BEAKER) (test code = 2801) POCT-GLUCOSE [id number] 10:23:00 Test Item Value Reference Range Interpretation Comments POC-GLUCOSE METER 83 mg/dL 70-110 : TESTED A T [facility] 1317 (BEAKER) (test code = [address]) [facility] 77 478: Chemical Plant Operator/Techni blanquita ID = [id number] for Tika Gonzalez COMPREHENSIVE METABOLIC [id number] 06:15:00 Test Item Value Reference Range Interpretation [...] S NOT APPLICABLE FOR DIALYSIS PATIEN TS. Chemical Plant Operator ID - [id number] W/PLT COUNT & AUTO [id number] 05:52:00 Test Item Value Reference Range Interpretation [...] PERCENT (BEAKER) (test code = 2801) POCT-GLUCOSE [id number] 22:13:00 Test Item Value Reference Range Interpretation Comments POC-GLUCOSE METER 117 mg/dL 70-110 H : TESTED A T [facility] 1317 (BEAKER) (test code [address], = 1538) [facility] 77 478: Chemical Plant Operator/Techni blanquita ID = [id number] for Matthew Raman STOOL PATH [id number] 11:33:00 Test Item Value Reference Range Interpretation Comments PATHOGEN EXAM CHARGED (BEAKER) (test Done code = 2381) SHIGA TOXIN [id number] 11:32:00 Test Item Value Reference Range Interpretation Comments SHIGA TOXIN 1 (BEAKER) (test Not detected Not detected code = 2177) SHIGA TOXIN 2 (BEAKER) (test Not detected Not detected code = 2179) C. DIFFICILE GDH [id number] 20:35:00 Test Item Value Reference Range Interpretation Comments CDT TOXIN (test code Negative Negative = [id number]) CDT GDH ANTIGEN (test Negative Negative No ind ication of code = 0750528715) Clostridi um difficile infection and n o colonization. Discontinue ent jelani isolation and t herapy. Testing performed by [employer] Rapid Cassette Assay. For GDH, published sensitivity of the assay is 98.7% compared to cytotoxicity testing. For Toxin AB, published sensitivity is 87.8% and specificity 99.4% compared to cytotoxicity testing.Verification of kit performance was done by the [facility] Microbiology[facility] prior to clinical use.COMPREHENSIVE METABOLIC [id number] 20:02:00 Test Item Value Reference Range Interpretation [...] S NOT APPLICABLE FOR DIALYSIS PATIEN TS. Chemical Plant Operator ID - [id number] W/PLT COUNT & AUTO [id number] 19:44:00 Test Item Value Reference Range Interpretation [...] (BEAKER) (test code = 2801) UTERUS,OTHER THAN [id number] 12:55:00 RUN DATE: 12/07/18 [facility] PAGE 1 RUN TIME: 1357 Specimen Inquiry RUN USER: INTERFACE --PATIENT: AMANDA NOVOA [facility] [place] U #: [id number] AGE/SX: 43/F ROOM: [facility] RE12/06/18REG DR: Amalia Bunch MD : 75 BED: A DIS: STATUS: ADM Dwight TLOC: SPEC #: [id number] RECD: 12/06/18 STATUS: CHELSY ALTAMIRANO #: [id number] GIANCARLO: 12/06/18 DR: Amalia Bunch MD ENTERED: 12/06/18P TYPE: UTERUSOTH OTHR DR: Joanie Treviño MD ORDERED: LEVEL V SURGICA CODES: C99723 - UTERUS, NOSCOPIES TO: Amalia Bunch MD [address] [place] [address] [email or web address] Joanie Treviño MD [address] [place] [address] PROCEDURES: LEVEL V SURGICA (Incomplete) TISSUES: UTERUS, NOS - UTERUS, CERVIX AND LEFT FALLOPIAN TUBE CLINICAL HISTORY 43 year old, uterine fibroids, menorrhagia, pelvic pain (kr) FINAL DIAGNOSIS Uterus, lef t fallopian tube, hysterectomy and left salpingectomy: cervix - no significant pathologic alterationendometrium - benign, early secretory phase with glandular and stromal breakdown myometrium - leiomyomas uterine serosa - benign fibrous adhesions left fallopian tube - benign paratubal cyst CPT code(s): 47243 ls/narciso dt: 12/07/18 CONTINUED ON NEXT PAGE RUN DATE: 12/07/18 [facility] PAGE 2 RUN TIME: 1357 Specimen Inquiry RUN USER: INTERFACE SPEC #: [id number] PATIENT: AMANDA NOVOA #[id number] (Con tinued) GROSS DESCRIPTION ANATOMIC SOURCE OF TISSUE (per Requisition): Uterus, cervix, left tube The specimenis received in formalin in a container labeled [...] os. The endometrium is crawley-red and hemorrhagic witha thickness measuring up to .0.1 cm. The myometrium is trabeculated with a wall thickness measuring up to 5.0 cm. There are four well-circumscribed nodules, 1.0 to 4.5 cm. The cut surfaces are crawley and whorled. There are no areas of hemorrhage or necrosis. The fallopian tube is pink-purple and hyperemic with a 1.0 cm clear, serous fluid-filled unremarkable paratubal cyst. The lumen is pinpoint. Section code: A1 - cervix, A2 - anterior endomyometrium, A3 - posterior endomyometrium and nodule, A4 - serosal adhesions, A5 - three nodules, A6 - entire fallopian tube. oralia 12/06/18 @ 1433 Signed Arelis Mcnulty MD 12/07/18 1255 END OF REPORT HGB [id number] 04:44:00 Test Item Value Reference Range Interpretation Comments HEMOGLOBIN (test code = HGB) 10.6 g/dL 10.7-13.9 L HEMATOCRIT (test code = HCT) 33.0 % 32.1-42.1 N UR HCG [id number] 08:34:00 Test Item Value Reference Range Interpretation [...] cted 48 hours later and tested. PROTHROMBIN [id number] 11:09:00 Test Item Value Reference Range Interpretation Comments PROTHROMBIN TIME PATIENT (test code 11.6 secs 10.4-12.4 N = PTP) THROMBOPLASTIN TIME [id number] 11:09:00 Test Item Value Reference Range Interpretation Comments THROMBOPLASTIN TIME PARTIAL (test 33.8 secs 22-38 N code = PTT) HCG SERUM [id number] 10:41:00 Test Item Value Reference Range Interpretation Comments HCG SERUM QUAL (test code = HCGQL) NEGATIVE CBC W/AUTO [id number] 10:25:00 Test Item Value Reference Range Interpretation [...] code = PLTMR) - XR L-SPINE 2/3 [id number] 01:48:00 Patient Name: AMANDA NOVOA Unit No: [id number] EXAMS: CPT CODE: [id number] XR L-SPINE 2/3 VIEWS [id number] EXAM: CR, XR L-SPINE 2/3 VIEWS: 09/18/2018, [...] is unremarkable. No acute fracture or dislocation of the lumbar spine seen. If indicated, follow-up radiograph or MRI can be obtained for complete assessment. IMPRESSION: 1. No acute fractureor dislocation of the lumbar spine seen. SL:GLENDA at 0148 Reported and signed by: David Cuevas M.D. CC: Amalia Bunch MD; Ramírez Martinez MD Technologist: RT Cat Trnscrbd D/ (0148) [email or web address] Orig Print D/T: S: 09/18/2018 (0151) [facility] NAME: AMANDA NOVOA Radiology Department PHYS: 14 - Ramírez Martinez MD [address] : 1975 AGE: 43 SEX: F [place], [place] [address] LOC: F.ERS PHONE #: [phone] EXAM DATE: 09/18/2018 STATUS: PRE ER FAX #: [phone] RAD NO: Page 1 Signed ReportCOMPREHENSIVE METABOLIC [id number] 01:41:00 Test Item Value Reference Range Interpretation [...] = ALKP) UA RFLX MICR CULT IF [id number] 00:49:00 Test Item Value Reference Range Interpretation [...] CAOXU) Indication for culture: Suprapubic PainUR HCG [id number] 00:49:00 Test Item Value Reference Range Interpretation [...] tested. Indication for culture: Suprapubic PainCBC W/AUTO [id number] 00:43:00 Test Item Value Reference Range Interpretation [...]
[2022-07-12 13:54] LABS: Absolute Lymphocytes (CBC) 0.8 K/uL (0.7-4.9); Hematocrit 39.9 % (36.0-45.0); Lymphocytes % 13.9 % (15.3-44.8); MCV 83.3 fL (80-100); MPV 8.8 fL (7.6-11.3); RBC Red Blood Cell Count 4.79 M/uL (3.86-4.86)
[2022-07-12 14:11] LABS: Magnesium 2.2 mg/dL (1.6-2.4); Potassium 3.3 mEq/L (3.5-5.1); Troponin High Sensitivity 3.8 pg/mL (<58.9)
[2022-07-12] MEDS ORDERED: MORPHINE 4 MG/ML SYR ONE (14:26)
--- NOTE | 2022-07-12 15:09 | RAD REPORT ---
EXAM DESCRIPTION: RAD - Chest Pa And Lat (2 Views) - 07/12/2022 2:43 pm CLINICAL HISTORY: CHEST PAIN Chest pain. COMPARISON: <Comparisons> FINDINGS: The lungs are clear. The heart is normal in size. No displaced fractures. IMPRESSION: No acute or concerning finding suspected.
[2022-07-12] MEDS ORDERED: Ringers Lactate 1,000 ML IV ONE (15:36)
--- NOTE | 2022-07-12 16:21 | RAD REPORT ---
EXAM DESCRIPTION: CT - Chest For Pe Angio - 07/12/2022 4:06 pm CLINICAL HISTORY: Chest pain. back pain COMPARISON: <Comparisons> TECHNIQUE: CT angiogram of the pulmonary arteries was performed with MIP. All CT scans are performed using dose optimization technique as appropriate and may include automated exposure control or mA/KV adjustment according to patient size. FINDINGS: No evidence of pulmonary thromboembolism. No acute aortic finding demonstrated. The lungs are clear. No significant pericardial or pleural fluid. No concerning bony finding. IMPRESSION: No evidence of pulmonary thromboembolism. No acute lung findings.
--- NOTE | 2022-07-12 16:23 | RAD REPORT ---
EXAM DESCRIPTION: CTAbdomen Pelvis W Contrast - 07/12/2022 4:09 pm CLINICAL HISTORY: Abdominal pain. ABD PAIN COMPARISON: <Comparisons> TECHNIQUE: Biphasic CT imaging of the abdomen and pelvis was performed with 100 ml non-ionic IV cont rast. All CT scans are performed using dose optimization technique as appropriate and may include automated exposure control or mA/KV adjustment according to patient size. FINDINGS: The lung bases are clear. The liver, spleen, pancreas, adrenal glands and kidneys are within normal limits. No bowel obstruction, free air, abdominal free fluid or abscess. There is moderate inflammation seen involving the terminal ileum which could indicate inflammatory bowel disease. The appendix is normal. Mild pelvic free fluid. No evidence of significant lymphadenopathy. No suspicious bony findings. IMPRESSION: Moderate inflammation involving the terminal ileum could indicate inflammatory bowel dis ease.
[2022-07-12 16:57] LABS: Specific Gravity > 1.030 (1.005-1.030); Urine Bilirubin NEGATIVE (Negative); Urine Blood Negative (Negative); Urine Clarity Clear (Clear); Urine Color Light-Yellow (Yellow); Urine Glucose NEGATIVE (Negative); Urine Protein NEGATIVE (Negative)
[2022-07-12 16:58] LABS: Urine Bacteria <20 /HPF (<20); Urine Mucus Slight /HPF (None Seen); Urine RBC <5 /HPF (None Seen); Urine Urobilinogen Normal (Normal)
--- NOTE | 2022-07-12 17:15 | ER ---
Nurse's Notes [facility] Name: Antonio Keyes Age: 47 yrs Sex: Female : 1975 Arrival Date: 07/12/2022 Time: 12:50 Bed 13 Private MD: Diagnosis: Low back pain;Abdominal pain, unspecified;Nausea with vomiting, unspecified;Diarrhea, unspecified;Palpitations Presentation: 07/12 13:20 Chief complaint: Patient states: she started having back pain, nausea vomiting, ap3 headache and feeling like her heart is racing last night. Coronavirus screen: At this time, the client does not indicate any symptoms associated with coronavirus-19. Ebola Screen: No symptoms or risks identified at this time. Initial Sepsis Screen: Does the patient meet any 2 criteria? HR > 90 bpm. No. Patient's initial sepsis screen is negative. Does the patient have a suspected source of infection? No. Patient's initial sepsis screen is negative. Risk Assessment: Do you want to hurt yourself or someone else? Patient reports no desire to harm self or others. Onset of symptoms was July 11, 2022. 13:20 Method Of Arrival: Ambulatory ap3 13:20 Acuity: AMANDA 3 ap3 Triage Assessment: 13:21 General: Appears in no apparent distress. Behavior is calm, cooperative, appropriate ap3 for age. Pain: Complains of pain in back and abdomen and head Pain does not radiate. Pain currently is 10 out of 10 on a pain scale. Pain began 1 day ago. Neuro: Level of Consciousness is awake, alert, obeys commands, Oriented to person, place, time, situation, Moves all extremities. Gait is steady, Speech is normal, Reports headache. Cardiovascular: Patient's skin is warm and dry. Respiratory: Airway is patent Respiratory effort is even, unlabored, Respiratory pattern is regular, symmetrical. GI: Reports nausea, vomiting. 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 - Social history:: Smoking status: Patient denies any tobacco usage or history of. Screenin:22 Abuse screen: Denies threats or abuse. Nutritional screening: No deficits noted. ap3 Tuberculosis screening: No symptoms or risk factors identified. Assessment: 13:45 General: Appears in no apparent distress. uncomfortable, Behavior is calm, cooperative, kc6 appropriate for age. Pain: Complains of pain in left subscapular area and left mid back Pain does not radiate. Pain currently is 9 out of 10 on a pain scale. Quality of pain is described as sharp, Is continuous, Alleviated by nothing. Aggravated by increased activity, repositioning, Noted to be quiet/stoic, resistant to movement, Also complains of no other associated symptoms. Neuro: Level of Consciousness is awake, alert, obeys commands, Oriented to person, place, time, situation, Appropriate for age. Cardiovascular: Reports palpitations, Heart tones S1 S2 present Capillary refill < 3 seconds Rhythm is sinus tachycardia. Respiratory: Airway is patent Trachea midline Respiratory effort is even, unlabored, Respiratory pattern is regular, symmetrical. GI: Reports nausea, vomiting, Patient currently denies diarrhea. : No signs and/or symptoms were reported regarding the genitourinary system. EENT: No signs and/or symptoms were reported regarding the EENT system. Derm: No signs and/or symptoms reported regarding the dermatologic system. Skin is intact, Skin is pink, warm \T\ dry. Musculoskeletal: No signs and/or symptoms reported regarding the musculoskeletal system. Circulation, motion, and sensation intact. Capillary refill < 3 seconds, Range of motion: intact in all extremities. 14:45 Reassessment: Patient appears in no apparent distress at this time. No changes from kc6 previously documented assessment. Patient and/or family updated on plan of care and expected duration. Pain level reassessed. Patient is alert, oriented x 3, equal unlabored respirations, skin warm/dry/pink. 15:45 Reassessment: Patient appears in no apparent distress at this time. No changes from kc6 previously documented assessment. Patient and/or family updated on plan of care and expected duration. Pain level reassessed. Patient is alert, oriented x 3, equal unlabored respirations, skin warm/dry/pink. 16:40 Reassessment: Patient appears in no apparent distress at this time. No changes from kc6 previously documented assessment. Patient and/or family updated on plan of care and expected duration. Pain level reassessed. Patient is alert, oriented x 3, equal unlabored respirations, skin warm/dry/pink. 17:15 Reassessment: d/c pending fluid completion. kc6 17:40 Reassessment: Patient appears in no apparent distress at this time. No changes from kc6 previously documented assessment. Patient and/or family updated on plan of care and expected duration. Pain level reassessed. Patient is alert, oriented x 3, equal unlabored respirations, skin warm/dry/pink. Vital Signs: 13:20 BP 127 / 81; Pulse 100; Resp 19; Temp 98.2; Pulse Ox 100% ; Weight 58.97 kg; Height 4 ap3 ft. 11 in. ; Pain 10/10; 14:57 BP 118 / 73; Pulse 97; Resp 16 S; Pulse Ox 100% on R/A; Pain 6/10; kc6 15:54 BP 132 / 84; Pulse 94; Resp 13 S; Pulse Ox 100% on R/A; Pain 6/10; kc6 16:43 BP 132 / 72; Pulse 93; Resp 12 S; Pulse Ox 100% on R/A; kc6 13:20 Body Mass Index 26.26 (58.97 kg, 149.86 cm) ap3 13:20 Pain Scale: Adult ap3 14:57 Pain Scale: Adult kc6 15:54 Pain Scale: Adult kc6 ED Course: 12:52 Patient arrived in ED. rg4 13:00 Agustín Loya DO is Attending Physician. ms3 13:21 Triage completed. ap3 13:22 Arm band placed on right wrist. ap3 13:23 Patient maintains SpO2 saturation greater than 95% on room air. ap3 13:30 Anu Sanders, RN is Primary Nurse. kc6 13:46 Inserted saline lock: 20 gauge in left antecubital area, using aseptic technique. Blood kc6 collected. 14:31 Chest Pa And Lat (2 Views) XRAY In Process Unspecified. EDMS 16:08 CT Chest For PE Angio In Process Unspecified. EDMS 16:10 CT Abd/Pelvis - IV Contrast Only In Process Unspecified. EDMS 16:43 Urinalysis w/ reflexes Sent. kc6 17:13 Alfredo Martinez DO is Referral Physician. ms3 17:13 Garo Howe MD is Referral Physician. ms3 18:14 Primary Nurse role handed off by Anu Sanders RN aa5 Administered Medications: 14:24 Drug: morphine IVP or IV 4 mg Route: IVP; Infused Over: 4 mins; Site: left antecubital; kc6 14:58 Follow up: Response: No adverse reaction; Pain is decreased; RASS: Alert and Calm (0) kc6 15:34 Drug: Lactated Ringers Solution IV 1000 ml Route: IV; Rate: bolus; Site: left kc6 antecubital; 17:57 Follow up: Response: No adverse reaction; IV Status: Completed infusion; IV Intake: kc6 500ml Intake: 17:57 IV: 500ml; Total: 500ml. kc6 Outcome: 17:14 Discharge ordered by . ms3 17:58 Patient left the ED. kc6 18:18 Patient left the ED. kc6 Signatures: Dispatcher [employer] EDMS Mirian Salas RN RN vi5 Za Wade Amanda, RN RN [id number] Agustín Loya DO DO ms3 Anu Sanders, RN RN kc6 Corrections: (The following items were deleted from the chart) 17:25 17:11 Reassessment: d/c pending fluid completion kc6 kc6
--- NOTE | 2022-07-12 17:15 | EDPHYS ---
Physician Documentation [facility] Name: Antonio Keyes Age: 47 yrs Sex: Female : 1975 Arrival Date: 07/12/2022 Time: 12:50 Bed 13 Private MD: ED Physician Agustín Loya HPI: 07/12 17:37 This 47 yrs old Female presents to ER via Ambulatory with complaints of Chest ms3 Pain, Back Pain, Palpitations. 17:37 47-year-old female no past medical history presents for nausea, vomiting, diarrhea that ms3 began last night. Patient states she developed back pain this morning and felt her heart racing. Patient also endorses headache and fatigue. Patient states her discomfort is a 10/10. Patient endorses subjective fever and chills. 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 - Social history:: Smoking status: Patient denies any tobacco usage or history of. ROS: 17:37 Constitutional: Negative for fever, and chills. Neck: Negative for injury, pain, and ms3 swelling, Respiratory: Negative for shortness of breath, cough, wheezing, and pleuritic chest pain, Back: Negative for injury and pain, MS/Extremity: Negative for injury and deformity, Skin: Negative for injury, rash, and discoloration, Neuro: Negative for headache, weakness, numbness, tingling. 17:37 Cardiovascular: Positive for palpitations. 17:37 Abdomen/GI: Positive for nausea, vomiting, and diarrhea. 17:37 Back: Positive for back pain. 17:37 All other systems are negative. Exam: 17:37 Constitutional: This is a well developed, well nourished patient who is awake, alert, ms3 and in no acute distress. Head/Face: Normocephalic, atraumatic. Neck: Trachea midline, no cervical lymphadenopathy. Supple, full range of motion without nuchal rigidity, or vertebral point tenderness. No Meningismus. Chest/axilla: Normal chest wall appearance and motion. Nontender with no deformity. Cardiovascular: Regular rate and rhythm with a normal S1 and S2. No gallops, murmurs, or rubs. Normal PMI, no JVD. No pulse deficits. Respiratory: Lungs have equal breath sounds bilaterally, clear to auscultation and percussion. No rales, rhonchi or wheezes noted. No increased work of breathing, no retractions or nasal flaring. Abdomen/GI: Soft, non-tender, with normal bowel sounds. No distension or tympany. No guarding or rebound. No evidence of tenderness throughout. Back: No spinal tenderness. No costovertebral tenderness. Full range of motion. Skin: Warm, dry with normal turgor. Normal color with no rashes, no lesions, and no evidence of cellulitis. MS/ Extremity: Pulses equal, no cyanosis. Neurovascular intact. Full, normal range of motion. 17:41 ECG was reviewed by the Attending Physician. ms3 Vital Signs: 13:20 BP 127 / 81; Pulse 100; Resp 19; Temp 98.2; Pulse Ox 100% ; Weight 58.97 kg; Height 4 ap3 ft. 11 in. ; Pain 10/10; 14:57 BP 118 / 73; Pulse 97; Resp 16 S; Pulse Ox 100% on R/A; Pain 6/10; kc6 15:54 BP 132 / 84; Pulse 94; Resp 13 S; Pulse Ox 100% on R/A; Pain 6/10; kc6 16:43 BP 132 / 72; Pulse 93; Resp 12 S; Pulse Ox 100% on R/A; kc6 13:20 Body Mass Index 26.26 (58.97 kg, 149.86 cm) ap3 13:20 Pain Scale: Adult ap3 14:57 Pain Scale: Adult kc6 15:54 Pain Scale: Adult kc6 MDM: 13:34 Patient medically screened. ms3 17:37 Differential diagnosis: abnormal EKG, acute myocardial infarction, acute pericarditis, ms3 pancreatitis, pneumonia, pneumothorax, pulmonary embolus. Data reviewed: vital signs, nurses notes, lab test result(s), radiologic studies, CT scan, plain films. I considered the following discharge prescriptions or medication management in the emergency department Medications were administered in the Emergency Department. See MAR. Independent interpretation of the following test(s) in the Emergency Department EKG: See my EKG interpretation above quarantine officer: rate is 94 beats/min, Rhythm is normal sinus rhythm, regular, with no ectopy, Interpretation: normal rate, normal rhythm. Counseling: I had a detailed discussion with the patient and/or guardian regarding: the historical points, exam findings, and any diagnostic results supporting the discharge/admit diagnosis, lab results, radiology results, the need for outpatient follow up, to return to the emergency department if symptoms worsen or persist or if there are any questions or concerns that arise at home. ED course: Discussed labs, EKG, chest x-ray, CT scans with patient. Patient to follow-up with Dr. Martinez and Dr. Howe in 2 to 3 days. Patient understands and agrees with plan. All questions were answered. Return precautions discussed include worsening symptoms, or any other concerns. On reevaluation patient is alert and oriented x4, no apparent distress, nontoxic-appearing, speaking full sentences, ambulatory in emergency department. 07/12 13:13 Order name: Basic Metabolic Panel; Complete Time: 14:12 ms3 07/12 13:13 Order name: CBC with Diff; Complete Time: 14:12 ms3 07/12 13:13 Order name: Magnesium; Complete Time: 14:12 ms3 07/12 13:13 Order name: Troponin HS; Complete Time: 14:12 ms3 07/12 13:13 Order name: Lipase; Complete Time: 14:12 ms3 07/12 15:11 Order name: Urinalysis w/ reflexes; Complete Time: 17:01 ms3 07/12 14:12 Order name: Chest Pa And Lat (2 Views) XRAY; Complete Time: 15:11 ms3 07/12 15:48 Order name: CT Chest For PE Angio; Complete Time: 16:26 ms3 07/12 15:48 Order name: CT Abd/Pelvis - IV Contrast Only; Complete Time: 16:26 ms3 07/12 13:13 Order name: EKG; Complete Time: 13:13 ms3 07/12 13:13 Order name: Cardiac monitoring; Complete Time: 13:46 ms3 07/12 13:13 Order name: EKG - Nurse/Tech; Complete Time: 13:46 ms3 07/12 13:13 Order name: IV Saline Lock; Complete Time: 13:46 ms3 07/12 13:13 Order name: Labs collected and sent; Complete Time: 13:46 ms3 07/12 13:13 Order name: O2 Per Protocol; Complete Time: 13:46 ms3 07/12 13:13 Order name: O2 Sat Monitoring; Complete Time: :46 ms3 EC:41 Rate is 105 beats/min. Rhythm is regular. QRS [place] is Normal. [place] interval is normal. ms3 QRS interval is normal. QT interval is normal. Clinical impression: Sinus tachycardia. Interpreted by me. Reviewed by me. Administered Medications: 14:24 Drug: morphine IVP or IV 4 mg Route: IVP; Infused Over: 4 mins; Site: left antecubital; kc6 14:58 Follow up: Response: No adverse reaction; Pain is decreased; RASS: Alert and Calm (0) kc6 15:34 Drug: Lactated Ringers Solution IV 1000 ml Route: IV; Rate: bolus; Site: left kc6 antecubital; 17:57 Follow up: Response: No adverse reaction; IV Status: Completed infusion; IV Intake: kc6 500ml Disposition Summary: 07/12/22 17:14 Discharge Ordered Location: Home ms3 Condition: Stable ms3 Diagnosis - Low back pain ms3 - Abdominal pain, unspecified ms3 - Nausea with vomiting, unspecified ms3 - Diarrhea, unspecified ms3 - Palpitations ms3 Followup: ms3 - With: Alfredo Martinez DO - When: 2 - 3 days - Reason: Recheck today's complaints Followup: ms3 - With: Garo Howe MD - When: 2 - 3 days - Reason: Recheck today's complaints Discharge Instructions: - Discharge Summary Sheet ms3 Forms: - Medication Reconciliation Form ms3 - Thank You Letter ms3 - Antibiotic Education ms3 - Prescription Opioid Use ms3 Prescriptions: - Ibuprofen 600 mg Oral Tablet - take 1 tablet by ORAL route every 6 hours As needed take with food; 30 tablet; ms3 Refills: 0, Product Selection Permitted Signatures: Dispatcher [employer] Ivanna Nichols RN RN ap3 Agustín Loya DO DO ms3 Anu Sanders RN RN kc6
[2022-07-12 18:48] VITALS: TEMP 98.2; O2SAT 100
[2022-07-12 18:52] VITALS: BP 132/72
--- NOTE | 2022-07-13 16:48 | EKG ---
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
--- NOTE | 2022-07-13 16:48 | EKG ---
Test Date: 2022-07-12 Test Time: 13:41:20 Aviation Consultant: JUVE MEASUREMENT RESULTS: Intervals: Rate: 102 VT: 132 QRSD: 90 QT: 342 QTc: 445 [place]: P: 71 VT: 132 QRS: 100 T: 57 INTERPRETIVE STATEMENTS: Sinus tachycardia Nonspecific ST abnormality Abnormal ECG Compared to ECG 04/05/2021 19:52:41 ST (T wave) deviation now present Sinus rhythm no longer present Right-axis deviation no longer present Electronically Signed On 07-13-22 16:46:41 CDT by Garo Howe
== END 2022-07-12 18:18 | disposition home or self-care (01) ==
LOC: ER 12:50
DX: R00.2 Palpitations (principal); M54.50 Low back pain, unspecified; R19.7 Diarrhea, unspecified; R11.2 Nausea with vomiting, unspecified; R10.9 Unspecified abdominal pain; I10 Essential (primary) hypertension; Z88.8 Allergy status to other drugs, medicaments and biological substances
CPT/HCPCS: 96361; 93005 ×2; 85025; 81001; 80048; 36415; 83735; 84484; 83690; 71275; 74177; 71046; 96374; 99284; Q9967; J7120

== ENCOUNTER 2023-11-21 22:01 | Inpatient (IN) | payer BC ==
[2023-11-21 23:04] LABS: Absolute Basophils 0.1 K/uL (0-0.5); Absolute Eosinophils 0.1 K/uL (0-0.5); Absolute Lymphocytes (CBC) 2.7 K/uL (0.7-4.9); Absolute Monocytes 0.5 K/uL (0.1-1.3); Absolute Neutrophil 4.9 K/uL (1.8-8.0); Basophils % 0.8 % (0-1.3); Eosinophils % 1.1 % (0-4.4); Hematocrit 39.9 % (36.0-45.0); Hemoglobin 13.3 g/dL (12.0-15.0); Lymphocytes % 32.6 % (15.3-44.8); MCH 28.1 pg (27.0-35.0); MCHC 33.3 g/dL (32.0-36.0); MCV 84.4 fL (80-100); MPV 7.7 fL (7.6-11.3); Monocytes % 5.9 % (3.3-12.3); Neutrophils % 59.6 % (41.7-73.7); Nucleated Red Blood Cells % 0.1 % (0-0); Platelets 243 thou/uL (152-406); RBC Red Blood Cell Count 4.72 M/uL (3.86-4.86); Red Cell Distribution Width 13.6 % (12.1-15.2); Specific Gravity 1.011 (1.005-1.030); Sqamous Epithelial <5 /HPF (None Seen); Urine Bacteria <20 /HPF (<20); Urine Bilirubin NEGATIVE (Negative); Urine Blood Negative (Negative); Urine Clarity Clear (Clear); Urine Color Colorless (Yellow); Urine Crystals Unidentified Few /HPF (None Seen); Urine Culture Reflex Order NOT NEEDED; Urine Glucose NEGATIVE (Negative); Urine Ketones NEGATIVE (Negative); Urine Microscopic Reflex YN ORDER UMIC; Urine Mucus Slight /HPF (None Seen); Urine Nitrite NEGATIVE (Negative); Urine Protein NEGATIVE (Negative); Urine RBC <5 /HPF (None Seen); Urine Urobilinogen Normal (Normal); Urine WBC <5 /HPF (<5)
[2023-11-21] MEDS ORDERED: FAMOTIDINE 20 MG/2 ML VIAL IV ONE (23:09)
[2023-11-21] MEDS ORDERED: NA CHLORIDE 0.9% 500 ML ONE (23:09)
[2023-11-21] MEDS ORDERED: ASPIRIN 81 MG CHEWABLE TABLET ONE (23:09)
[2023-11-21 23:20] LABS: ALT/SGPT 25 U/L (13-56); AST/SGOT 13 U/L (15-37); Albumin 3.9 g/dL (3.4-5.0); Albumin/Globulin Ratio 1.1 (1.1-1.8); Alkaline Phosphatase 55 U/L (45-117); Anion Gap 6.3 mEq/L (5.0-15.0); BUN Blood Urea Nitrogen 13 mg/dL (7-18); Bicarbonate 30 mEq/L (21-32); Bilirubin Total 0.4 mg/dL (0.2-1.0); Globulin 3.4 g/dL (2.3-3.5); Glomerular Filtration Rate 108 ml/min (=/>90); Glucose Level 76 mg/dL (74-106); Lipase 67 U/L (13-75); Magnesium 2.1 mg/dL (1.6-2.4); NT PRO-BNP 34 pg/mL (<125); Potassium 3.3 mEq/L (3.5-5.1); Protein, Total 7.3 g/dL (6.4-8.2); Sodium Level 139 mEq/L (136-145); Troponin High Sensitivity 3.5 pg/mL (<58.9)
[2023-11-21 23:24] LABS: PT Prothrombin Time 10.6 SECONDS (9.4-12.5); Protime INR 0.94
[2023-11-21 23:25] LABS: Bilirubin Direct < 0.2 mg/dL (0-0.2); Bilirubin Indirect, Calculated 0.2 mg/dL (0.2-0.8)
--- NOTE | 2023-11-21 23:29 | ER ---
Nurse's Notes [facility] Name: Antonio Keyes Age: 48 yrs Sex: Female : 1975 Arrival Date: 11/21/2023 Time: 22:01 Bed 17 Private MD: Diagnosis: Chest pain, unspecified;Essential (primary) hypertension;Hypokalemia;Other cholelithiasis without obstruction Presentation: 11/20 22:14 Chief complaint: Patient states: I have not been able to control my blood pressure for jb4 the past 3 days. It has been high and today is the worst. I started having chest pain after work around 6pm. Coronavirus screen: At this time, the client does not indicate any symptoms associated with coronavirus-19. Ebola Screen: No symptoms or risks identified at this time. Initial Sepsis Screen: Does the patient meet any 2 criteria? No. Patient's initial sepsis screen is negative. Does the patient have a suspected source of infection? No. Patient's initial sepsis screen is negative. Risk Assessment: Do you want to hurt yourself or someone else? Patient reports no desire to harm self or others. Onset of symptoms was November 21, 2023. Transition of care: patient was not received from another setting of care. 22:14 Method Of Arrival: Ambulatory jb4 22:14 Acuity: AMANDA 2 jb4 Triage Assessment: 22:16 General: Appears in no apparent distress. comfortable, Behavior is calm, cooperative. jb4 Pain: Complains of pain in chest Pain does not radiate. Pain currently is 7 out of 10 on a pain scale. Cardiovascular: Patient's skin is warm and dry. Respiratory: Airway is patent Respiratory effort is even, unlabored, Respiratory pattern is regular, symmetrical. Historical: - Allergies: 22:16 Dilantin; jb4 - PMHx: 22:16 Hypertensive disorder; jb4 - PSHx: 22:16 partial hysterectomy; section; neck ( section); jb4 - Immunization history:: Adult Immunizations up to date. - Infectious Disease History:: Denies. - Social history:: Smoking status: Patient denies any tobacco usage or history of. - Family history:: not pertinent. - History obtained from: spouse, mother. Screenin:59 [facility] ED Fall Risk Assessment (Adult) History of falling in the last 3 months, me1 including since admission No falls in past 3 months (0 pts) Confusion or Disorientation No (0 pts) Intoxicated or Sedated No (0 pts) Impaired Gait No (0 pts) Mobility Assist Device Used No (0 pt) Altered Elimination No (0 pt) Score/Fall Risk Level 0 - 2 = Low Risk Maintained a safe environment, Provided non-skid footwear, Hourly rounding (assess needs \T\ fall precautionary measures) done. Abuse screen: Denies threats or abuse. Nutritional screening: No deficits noted. Tuberculosis screening: No symptoms or risk factors identified. Assessment: 22:59 General: Appears uncomfortable, well groomed, well developed, well nourished, Behavior me1 is calm, cooperative, appropriate for age, Reports I have not been able to control my blood pressure for the past 3 days. It has been high and today is the worst. I started having chest pain after work around 6pm. CP is heavy, 7/10 at this time with tingling to left arm and hand. Reports some nausea. Pain: Complains of pain in chest Pain radiates to left arm Pain currently is 7 out of 10 on a pain scale. Quality of pain is described as heavy, Pain began 4 hours ago. Is continuous. Neuro: Level of Consciousness is awake, alert, obeys commands, Oriented to person, place, time, situation, Appropriate for age. Cardiovascular: Patient's skin is warm and dry. Cardiovascular: Reports chest pain, nausea. Respiratory: Airway is patent Respiratory effort is even, unlabored, Respiratory pattern is regular, symmetrical. GI: Reports nausea. : No signs and/or symptoms were reported regarding the genitourinary system. EENT: No signs and/or symptoms were reported regarding the EENT system. Derm: Skin is intact, is healthy with good turgor, Skin is pink, warm \T\ dry. Musculoskeletal: No signs and/or symptoms reported regarding the musculoskeletal system. 11/21 05:04 Reassessment: Patient appears in no apparent distress at this time. Patient and/or lg3 family updated on plan of care and expected duration. Pain level reassessed. Patient is alert, oriented x 3, equal unlabored respirations, skin warm/dry/pink. Patient states feeling better. Patient states symptoms have improved. Vital Signs: 11/20 22:30 BP 165 / 89; Pulse 65; Resp 11; Pulse Ox 100% on R/A; me1 23:00 BP 154 / 90; Pulse 63; Resp 15; Pulse Ox 100% ; me1 23:51 BP 181 / 92 LA; me1 23:51 BP 166 / 83 RA; me1 23:52 BP 166 / 83; Pulse 64; Resp 16; Pulse Ox 100% ; me1 /04 04:18 BP 133 / 71; Pulse 83; Resp 15 S; Pulse Ox 100% on R/A; lg3 ED Course: 11/20 22:03 Patient arrived in ED. jj6 22:15 radiation monitor on. me1 22:16 Triage completed. jb4 22:16 Arm band placed on right wrist. jb4 22:26 Oscar Ybarra MD is Attending Physician. jeff 22:35 Carmita Womack, SCOT is Primary Nurse. me1 22:56 Initial lab(s) drawn, by pa, sent to lab. Urine collected: clean catch specimen, clear. me1 Missed attempt(s): 22 gauge in right antecubital area. 22:56 Urinalysis w/ reflexes Sent. me1 22:56 Lipase Sent. me1 22:57 Basic Metabolic Panel Sent. me1 22:57 CBC with Diff Sent. me1 22:57 LFT's Sent. me1 22:57 Magnesium Sent. me1 22:57 NT PRO-BNP Sent. me1 22:57 PT-INR Sent. me1 22:57 Troponin HS Sent. me1 22:57 EKG done, by ED staff, reviewed by Oscar Ybarra MD. me1 22:59 Patient has correct armband on for positive identification. Bed in low position. Call [facility] light in reach. Side rails up X2. Provided Education on: POC. Verbalized understanding. . Client placed on continuous cardiac and pulse oximetry monitoring. NIBP monitoring applied. radiation monitor on. Pulse ox on. NIBP on. 22:59 No provider procedures requiring assistance completed. Patient maintains SpO2 pa1 saturation greater than 95% on room air. 23:28 Derick Do MD is Hospitalizing Provider. jeff 23:40 Inserted saline lock: 22 gauge in left antecubital area, using aseptic technique. oe Flushed with 10 mL NS. 23:59 XRAY Chest (1 view) In Process Unspecified. EDMS 11/21 00:06 CT Aorta for Dissection In Process Unspecified. EDMS 00:25 US Abdomen Limited In Process Unspecified. EDMS 05:04 Patient admitted, IV remains in place. lg3 Administered Medications: 11/20 23:17 Drug: Aspirin PO Chewable Tablet 162 mg PO once Route: PO; me1 23:22 Follow up: Response: No adverse reaction me1 23:40 Drug: NS 0.9% IV 500 ml IV at bolus once Route: IV; Rate: bolus; Site: left antecubital;me1 11/21 04:50 Follow up: Response: No adverse reaction; IV Status: Completed infusion; IV Intake: lg3 500ml 11/20 23:40 Drug: Famotidine IVP 20 mg IVP once; dilute with 10 mL 0.9% NaCl; give over 2 minutes me1 Route: IVP; Site: left antecubital; 11/21 04:50 Follow up: Response: No adverse reaction lg3 11/20 23:49 Drug: Norvasc PO 5 mg PO once Route: PO; me1 23:55 Follow up: Response: No adverse reaction pa1 11/21 00:07 Drug: Potassium PO Effervescent Tablet 25 mEq PO once; dissolve in 4 ounces of water or me1 juice Route: PO; 04:50 Follow up: Response: No adverse reaction lg3 01:03 Drug: Piperacillin-Tazobactam IVPB 3.375 grams IVPB once over 60 mins; (mix in NS 100 lg3 mL) Route: IVPB; Infused Over: 60 mins; Site: left antecubital; 04:49 Follow up: Response: No adverse reaction; IV Status: Completed infusion; IV Intake: lg3 100ml Medication: 11/20 22:59 VIS not applicable for this client. me1 Intake: 11/21 04:49 IV: 100ml; Total: 100ml. lg3 04:50 IV: 500ml; Total: 600ml. lg3 Outcome: 11/20 23:28 Decision to Hospitalize by Provider. [facility] 11/21 05:04 Admitted to Med/surg accompanied by tech, via wheelchair, lg3 Condition: stable Instructed on the need for admit, Demonstrated understanding of instructions, 05:09 Patient left the ED. lg3 Signatures: Dispatcher [employer] Oscar Greenberg MD MD cha Bryson, James, RN RN jb4 [place] Blanca Lacie, SCOT RN lg3 Araceli Paredes jj6 Carimta Womack RN RN me1 Corrections: (The following items were deleted from the chart) 11/20 22:59 22:14 Chief complaint: Patient states: I have not been able to control my blood me1 pressure for the past 3 days. It has been high and today is the worst. I started having chest pain after work around 6pm. jb4 23:55 23:51 BP 143 / 90 R Arm; me1 me1
--- NOTE | 2023-11-21 23:29 | EDPHYS ---
Physician Documentation [facility] Name: Antonio Keyes Age: 48 yrs Sex: Female : 1975 Arrival Date: 11/21/2023 Time: 22:01 Bed 17 Private MD: ED Physician Oscar Ybarra HPI: 11/20 23:16 This 48 yrs old Female presents to ER via Ambulatory with complaints of Chest jeff Pain, High Blood Pressure, Numbness Of Arm, Epigastric Pain. 23:16 The patient or guardian reports chest pain that is located primarily in the substernal jeff area. Onset: 2 day(s) ago. The pain radiates to the left arm, the left shoulder. Associated signs and symptoms: Pertinent positives: nausea, shortness of breath. The chest pain is described as a heaviness, a pressure. Duration: The patient or guardian reports multiple episodes, that wax and wane, with no pattern. Modifying factors: The symptoms are alleviated by nothing. the symptoms are aggravated by nothing. Severity of pain: At its worst the pain was moderate in the emergency department the pain has improved moderately. The patient has experienced similar episodes in the past, a few times. Historical: - Allergies: 22:16 Dilantin; jb4 - PMHx: 22:16 Hypertensive disorder; jb4 - PSHx: 22:16 partial hysterectomy; section; neck ( section); jb4 - Immunization history:: Adult Immunizations up to date. - Infectious Disease History:: Denies. - Social history:: Smoking status: Patient denies any tobacco usage or history of. - Family history:: not pertinent. - History obtained from: spouse, mother. ROS: 23:16 Constitutional: Negative for fever, chills, and weight loss, Eyes: Negative for injury, jeff pain, redness, and discharge, ENT: Negative for injury, pain, and discharge, Neck: Negative for injury, pain, and swelling, Respiratory: Negative for shortness of breath, cough, wheezing, and pleuritic chest pain, Abdomen/GI: Negative for abdominal pain, nausea, vomiting, diarrhea, and constipation, : Negative for injury, bleeding, discharge, and swelling, MS/Extremity: Negative for injury and deformity, Skin: Negative for injury, rash, and discoloration, Neuro: Negative for headache, weakness, numbness, tingling, and seizure, Psych: Negative for depression, anxiety, suicide ideation, homicidal ideation, and hallucinations, Allergy/Immunology: Negative for hives, rash, and allergies, Endocrine: Negative for neck swelling, polydipsia, polyuria, polyphagia, and marked weight changes, Hematologic/Lymphatic: Negative for swollen nodes, abnormal bleeding, and unusual bruising, 23:16 Cardiovascular: Positive for chest pain, Negative for palpitations, 23:16 Back: Positive for pain at rest, of the thoracic area, Exam: 23:16 Constitutional: This is a well developed, well nourished patient who is awake, alert, jeff and in no acute distress. Head/Face: Normocephalic, atraumatic. Eyes: Pupils equal round and reactive to light, extra-ocular motions intact. Lids and lashes normal. Conjunctiva and sclera are non-icteric and not injected. Cornea within normal limits. Periorbital areas with no swelling, redness, or edema. ENT: Nares patent. No nasal discharge, no septal abnormalities noted. Tympanic membranes are normal and external auditory canals are clear. Oropharynx with no redness, swelling, or masses, exudates, or evidence of obstruction, uvula midline. Mucous membranes moist. Neck: Trachea midline, no thyromegaly or masses palpated, and no cervical lymphadenopathy. Supple, full range of motion without nuchal rigidity, or vertebral point tenderness. No Meningismus. Chest/axilla: Normal chest wall appearance and motion. Nontender with no deformity. No lesions are appreciated. Cardiovascular: Regular rate and rhythm with a normal S1 and S2. No gallops, murmurs, or rubs. Normal PMI, no JVD. No pulse deficits. Respiratory: Lungs have equal breath sounds bilaterally, clear to auscultation and percussion. No rales, rhonchi or wheezes noted. No increased work of breathing, no retractions or nasal flaring. Abdomen/GI: Soft, non-tender, with normal bowel sounds. No distension or tympany. No guarding or rebound. No evidence of tenderness throughout. Back: No spinal tenderness. No costovertebral tenderness. Full range of motion. Skin: Warm, dry with normal turgor. Normal color with no rashes, no lesions, and no evidence of cellulitis. MS/ Extremity: Pulses equal, no cyanosis. Neurovascular intact. Full, normal range of motion. Neuro: Awake and alert, GCS 15, oriented to person, place, time, and situation. Cranial nerves II-XII grossly intact. Motor strength 5/5 in all extremities. Sensory grossly intact. Cerebellar exam normal. Normal gait. Psych: Awake, alert, with orientation to person, place and time. Behavior, mood, and affect are within normal limits. 23:16 ECG was reviewed by the Attending Physician. Vital Signs: 22:30 BP 165 / 89; Pulse 65; Resp 11; Pulse Ox 100% on R/A; me1 23:00 BP 154 / 90; Pulse 63; Resp 15; Pulse Ox 100% ; me1 23:51 BP 181 / 92 LA; me1 23:51 BP 166 / 83 RA; me1 23:52 BP 166 / 83; Pulse 64; Resp 16; Pulse Ox 100% ; me1 11/21 04:18 BP 133 / 71; Pulse 83; Resp 15 S; Pulse Ox 100% on R/A; lg3 MDM: 11/20 22:26 Patient medically screened. jeff 23:18 Differential diagnosis: abnormal EKG, acute myocardial infarction, acute pericarditis, jeff anxiety, coronary artery disease chest wall pain, Cholelithiasis costochondritis, esophagitis, gastritis, gastroesophageal reflux disease (GERD), hiatal hernia, myocarditis, peptic ulcer disease, pericarditis, pleurisy, pneumonia, pulmonary embolus, thoracic aortic disection, unstable angina. HEART Score: History: Moderately Suspicious (1), ECG: Normal (0), Age: > 45 and < 65 years (1), Risk Factors: > or = 3 Risk factors for atherosclerotic disease (2), [Hypertension] [+ Family HX] [Obesity] Troponin: < or = 1 x Normal Limit (0). The patient was given aspirin in the Emergency Department. Data reviewed: vital signs, nurses notes, lab test result(s), EKG, radiologic studies, plain films. Consideration of Admission/Observation Patient was admitted/placed on observation. Escalation of care including admission/observation considered. I considered the following discharge prescriptions or medication management in the emergency department Medications were administered in the Emergency Department. See MAR. Independent interpretation of the following test(s) in the Emergency Department EKG: See my EKG interpretation above. Test considered but Not performed: Ultrasound no 2 d echo. Care significantly affected by the following chronic conditions: Hypertension. Counseling: I had a detailed discussion with the patient and/or guardian regarding the historical points, exam findings, and any diagnostic results supporting the discharge/admit diagnosis, the presence of at least one elevated blood pressure reading (>120/80) during this emergency department visit, lab results, radiology results, the need for further work-up and treatment in the hospital. 11/20 22:31 Order name: Basic Metabolic Panel; Complete Time: 23:27 [facility] 11/20 22:31 Order name: CBC with Diff; Complete Time: 23:14 [facility] 11/20 22:31 Order name: LFT's; Complete Time: 23:27 [facility] 11/20 22:31 Order name: Magnesium; Complete Time: 23:27 [facility] 11/20 22:31 Order name: NT PRO-BNP; Complete Time: 23:27 [facility] 11/20 22:31 Order name: PT-INR; Complete Time: 23:27 [facility] 11/20 22:31 Order name: Troponin HS; Complete Time: 23:27 [facility] 11/20 22:31 Order name: Lipase; Complete Time: 23:27 [facility] 11/20 22:31 Order name: Urinalysis w/ reflexes; Complete Time: 23:14 [facility] 11/21 02:33 Order name: Urinalysis w/ reflexes [facility] 11/21 02:33 Order name: CBC with Automated Diff [facility] 11/21 02:33 Order name: CBC with Automated Diff [facility] 11/21 02:33 Order name: Comprehensive Metabolic Panel [facility] 11/21 02:33 Order name: Comprehensive Metabolic Panel [facility] 11/21 02:33 Order name: Lipid Profile [facility] 11/21 02:33 Order name: Lipid Profile [facility] 11/21 02:33 Order name: Troponin High Sensitivity [facility] 11/21 02:33 Order name: Troponin High Sensitivity [facility] 11/21 02:33 Order name: Troponin High Sensitivity [facility] 11/21 02:33 Order name: Troponin High Sensitivity [facility] 11/20 22:31 Order name: XRAY Chest (1 view) [facility] 11/20 23:16 Order name: CT Aorta for Dissection [facility] 11/20 23:31 Order name: US Abdomen Limited [facility] 11/21 02:37 Order name: Echo with Doppler [facility] 11/20 22:31 Order name: EKG; Complete Time: 22:31 [facility] 11/21 02:33 Order name: EKG Electrocardiogram [facility] 11/21 02:33 Order name: EKG Electrocardiogram [facility] 11/20 22:31 Order name: Cardiac monitoring; Complete Time: 22:57 [facility] 11/20 22:31 Order name: EKG - Nurse/Tech; Complete Time: 22:57 [facility] 11/20 22:31 Order name: IV Saline Lock; Complete Time: 00:18 [facility] 11/20 22:31 Order name: Labs collected and sent; Complete Time: 22:57 [facility] 11/20 22:31 Order name: O2 Per Protocol; Complete Time: 22:57 [facility] 11/20 22:31 Order name: O2 Sat Monitoring; Complete Time: 22:57 [facility] 11/20 23:27 Order name: Bilateral blood pressure; Complete Time: 23:54 [facility] EC:16 Rate is 66 beats/min. Rhythm is regular. QRS [place] is Normal. QRS interval is normal. QT jeff interval is normal. No Q waves. T waves are Normal. No ST changes noted. Clinical impression: Normal ECG and No evidence of ischemia. Interpreted by me. Reviewed by me. Administered Medications: 23:17 Drug: Aspirin PO Chewable Tablet 162 mg PO once Route: PO; ut1 23:22 Follow up: Response: No adverse reaction ut1 23:40 Drug: NS 0.9% IV 500 ml IV at bolus once Route: IV; Rate: bolus; Site: left antecubital;ut1 11/21 04:50 Follow up: Response: No adverse reaction; IV Status: Completed infusion; IV Intake: lg3 500ml 11/20 23:40 Drug: Famotidine IVP 20 mg IVP once; dilute with 10 mL 0.9% NaCl; give over 2 minutes ut1 Route: IVP; Site: left antecubital; 11/21 04:50 Follow up: Response: No adverse reaction [facility] 11/20 23:49 Drug: Norvasc PO 5 mg PO once Route: PO; me1 23:55 Follow up: Response: No adverse reaction [facility] 11/21 00:07 Drug: Potassium PO Effervescent Tablet 25 mEq PO once; dissolve in 4 ounces of water or me1 juice Route: PO; 04:50 Follow up: Response: No adverse reaction 3 01:03 Drug: Piperacillin-Tazobactam IVPB 3.375 grams IVPB once over 60 mins; (mix in NS 100 lg3 mL) Route: IVPB; Infused Over: 60 mins; Site: left antecubital; 04:49 Follow up: Response: No adverse reaction; IV Status: Completed infusion; IV Intake: lg3 100ml Disposition Summary: 11/21/23 23:28 Hospitalization Ordered Notes: Hospitalization Status: Observation jeff Provider: Derick Do cha Location: Telemetry/MedSurg (observation) jeff Condition: Fair jeff Problem: new jeff Symptoms: have improved jeff Bed/Room Type: Standard jeff Room Assignment: 207(11/22/23 03:58) cg Diagnosis - Chest pain, unspecified jeff - Essential (primary) hypertension jeff - Hypokalemia jeff - Other cholelithiasis without obstruction jeff Forms: - Medication Reconciliation Form jeff - SBAR form jeff - Leadership Thank You Letter jeff Signatures: Dispatcher [employer] EDOscar Rosenthal MD MD cha Garcia, Cindy, RN RN cg Charli Martin RN RN jb4 Chrissie Echeverria RN RN lg3 Carmita Womack RN RN me1 Corrections: (The following items were deleted from the chart) 11/20 23:31 23:31 Abdomen Limited+[id number] ordered. [facility] 11/21 03:58 11/20 23:28 jeff cg
[2023-11-21] MEDS ORDERED: AMLODIPINE 5 MG TAB ONE (23:50)
[2023-11-21] MEDS ORDERED: POTASSIUM 25 MEQ EFFERV TAB ONE (23:56)
[2023-11-22] MEDS ORDERED: PIPERACIL/TAZO 3.375 GM VIAL IV ONE (00:27)
[2023-11-22] MEDS ORDERED: NA CHLORIDE 0.9% 100 ML ONE (00:27)
--- NOTE | 2023-11-22 02:16 | P.HP ---
Certification for Inpatient Patient admitted to: Observation With expected LOS: <2 Midnights Practitioner: I am a practitioner with admitting privileges, knowledge of patient current condition, hospital course, and medical plan of care. Services: Services provided to patient in accordance with Admission requirements found in Title 42 Section 412.3 of the Code of Federal Regulations Patient History Date of Service: 11/22/23 Reason for admission: chest pain History of Present Illness: 48-year-old female with history of hypertension presented to the ER with complaints of chest pain. She reports onset around 6 PM. Described as substernal. She also reported some left arm and neck pain. She reports her pain is slightly better but present currently. She did report having some nausea as well as shortness of breath. Discomfort described as heaviness and pressure. She denies history of smoking, diabetes but states she has hypertension. She notes that her blood pressure has been elevated higher than usual. She denies any previous stress test. She does report family history of coronary disease but people having heart disease later in life. Physical Examination - Physical Exam General: Alert, Oriented x3 HEENT: Atraumatic Respiratory: Clear to auscultation bilaterally, Normal air movement Cardiovascular: Regular rate/rhythm, Normal S1 S2 Gastrointestinal: Soft and benign, Tenderness Musculoskeletal: No clubbing, No swelling Neurological: Normal speech - Studies Laboratory Data (last 24 hrs) 11/21/23 11/21/23 11/21/23 22:53 22:53 22:53 WBC 8.20 Hgb 13.3 Hct 39.9 Plt Count 243 PT 10.6 INR 0.94 Sodium 139 Potassium 3.3 L BUN 13 Creatinine 0.67 Glucose 76 Magnesium 2.1 Total Bilirubin 0.4 AST 13 L ALT 25 Alkaline Phosphatase 55 Lipase 67 Assessment and Plan - Problems (Diagnosis) (1) Chest pain Current Visit: Yes Status: Acute (2) Hypertension Current Visit: Yes Status: Acute (3) Gallstone Current Visit: Yes Status: Acute - Plan Chest pain Hypertension Gallstones Admit for observation with telemetry Serial cardiac enzymes Aspirin Will make n.p.o. after midnight Check echocardiogram Surgery consultation, abx started in ED As needed analgesics Consider cardiology consultation and stress test will keep NPO DVT: SCD code: Full - Advance Directives Does patient have a Living Will: No Does patient have a Durable POA for Healthcare: No
[2023-11-22 05:23] VITALS: BMI 26.4
[2023-11-22] MEDS: ONDANSETRON 4 MG/2 ML VIAL IV PRN (05:46)
[2023-11-22] MEDS: NA CHLORIDE 0.9% 1,000 ML IV SCH (05:46)
[2023-11-22] MEDS: ACETAMINOPHEN 325 MG TABLET PO PRN (05:46)
[2023-11-22] MEDS ORDERED: NITROGLYCERIN 0.4 MG/TAB SL PRN (07:16)
--- NOTE | 2023-11-22 07:41 | P.DS ---
Admission Date: 11/23/23 Discharge Date: 11/23/23 Reason for Admission: chest pain Brief History of Present Illness: 48-year-old female with history of hypertension presented to the ER with complaints of chest pain. She reports onset around 6 PM. Described as substernal. She also reported some left arm and neck pain. She reports her pain is slightly better but present currently. She did report having some nausea as well as shortness of breath. Discomfort described as heaviness and pressure. She denies history of smoking, diabetes but states she has hypertension. She notes that her blood pressure has been elevated higher than usual. She denies any previous stress test. She does report family history of coronary disease but people having heart disease later in life. - Physical Exam General: Alert, Oriented x3 HEENT: Atraumatic Respiratory: Clear to auscultation bilaterally, Normal air movement Cardiovascular: Regular rate/rhythm, Normal S1 S2 Gastrointestinal: Soft and benign, Tenderness Musculoskeletal: No clubbing, No swelling Neurological: Normal speech Hospital Course: 48-year-old female with history of hypertension presented to the ER with complaints of chest pain. She reports onset around 6 PM. Described as substernal. She also reported some left arm and neck pain. She was evaluated by cardiology, stress test completed, echocardiogram normal. Serial troponins negative, she is tolerating diet, stable follow-up with primary care, cardiology after discharge for any change or worsening of Assessment Admitted for chest pain, troponins negative, echocardiogram normal, Migraine, treated with Toradol, Phenergan, She reported allergic reaction to Phenergan, Phenergan listed as an allergy, History of migraines, likely related to new antihypertensives, --Patient having migraine headaches with Olmesartan, tried Norvasc in the past which did not help her BP, Start Propranolol [address] no evidence of cardiac dissection Abdominal ultrasound gallbladder showing gallstones, no acute cholelithiasis MRI IMPRESSION: No acute intracranial process. No evidence of ventriculomegaly or mass effect. Continue home medicines as previously prescribed GOAL: Clear understanding of disease process INSTRUCTIONS: Physician Discharge Instructions: -Follow-up with cardiology after discharge -Follow-up with PCP in 1 to 2 weeks -Please call Dr. Wright at [phone] if any questions regarding hospital stay -Please call nursing station at [phone] if any nursing or medication questions -Return to the emergency room if symptoms worsen Diet: ADA, low sodium Activity: Fall precautions <Rangel Fontenoty - Last Filed: 11/24/23 15:03> Admission Date: 11/22/23 Discharge Date: 11/23/23 Hospital Course: Chart has been reviewed. Events of the last 24 hours have been noted. Case discussed with [facility]. I performed a substantial part of the MDM during this patient's care today. I personally made or approved the documented management plan and acknowledge its risk of complications. I agree with the findings and documentation provided in the [facility]ANCO's notes <Mirian Wright - Last Filed: 12/01/23 02:54> Disposition: ROUTINE DISCHARGE Discharge Condition: GOOD Vital Signs/Physical Exam: Temp Pulse Resp BP Pulse Ox 83 15 133/71 11/22/23 05:32 11/22/23 05:32 11/22/23 05:32 Laboratory Data at Discharge: WBC 8.20 thou/uL (4.3-10.9) 11/21/23 22:53 Hgb 13.3 g/dL (12.0-15.0) 11/21/23 22:53 Hct 39.9 % (36.0-45.0) 11/21/23 22:53 Plt Count 243 thou/uL (152-406) 11/21/23 22:53 PT 10.6 SECONDS (9.4-12.5) 11/21/23 22:53 INR 0.94 11/21/23 22:53 Sodium 139 mEq/L (136-145) 11/21/23 22:53 Potassium 3.7 mEq/L (3.5-5.1) 11/22/23 07:09 BUN 13 mg/dL (7-18) 11/21/23 22:53 Creatinine 0.67 mg/dL (0.55-1.02) 11/21/23 22:53 Glucose 76 mg/dL (74-106) 11/21/23 22:53 Magnesium 2.1 mg/dL (1.6-2.4) 11/21/23 22:53 Total Bilirubin 0.4 mg/dL (0.2-1.0) 11/21/23 22:53 AST 13 U/L (15-37) L 11/21/23 22:53 ALT 25 U/L (13-56) 11/21/23 22:53 Alkaline Phosphatase 55 U/L (45-117) 11/21/23 22:53 Lipase 67 U/L (13-75) 11/21/23 22:53 <Debra Fontenot - Last Filed: 11/24/23 15:03> Vital Signs/Physical Exam: Temp Pulse Resp BP Pulse Ox 97.8 F 68 16 133/72 100 11/23/23 16:00 11/23/23 16:00 11/23/23 16:00 11/23/23 16:00 11/23/23 16:00 Laboratory Data at Discharge: WBC 5.60 thou/uL (4.3-10.9) 11/23/23 04:37 Hgb 12.0 g/dL (12.0-15.0) 11/23/23 04:37 Hct 36.1 % (36.0-45.0) 11/23/23 04:37 Plt Count 201 thou/uL (152-406) 11/23/23 04:37 PT 10.6 SECONDS (9.4-12.5) 11/21/23 22:53 INR 0.94 11/21/23 22:53 Sodium 140 mEq/L (136-145) 11/23/23 04:37 Potassium 3.3 mEq/L (3.5-5.1) L 11/23/23 04:37 BUN 9 mg/dL (7-18) 11/23/23 04:37 Creatinine 0.54 mg/dL (0.55-1.02) L 11/23/23 04:37 Glucose 70 mg/dL (74-106) L 11/23/23 04:37 Magnesium 2.1 mg/dL (1.6-2.4) 11/21/23 22:53 Total Bilirubin 1.0 mg/dL (0.2-1.0) 11/23/23 04:37 AST 11 U/L (15-37) L 11/23/23 04:37 ALT 20 U/L (13-56) 11/23/23 04:37 Alkaline Phosphatase 43 U/L (45-117) L 11/23/23 04:37 Triglycerides 74 mg/dL (<150) 11/23/23 04:37 Cholesterol 159 mg/dL (<200) 11/23/23 04:37 HDL Cholesterol 59 mg/dL (40-60) 11/23/23 04:37 Cholesterol/HDL Ratio 2.69 11/23/23 04:37 Lipase 67 U/L (13-75) 11/21/23 22:53 <WrightDyanashant Russ - Last Filed: 12/01/23 02:54> Time spent managing pt's care (in minutes): 55 <Debra Fontenot - Last Filed: 11/24/23 15:03> <Mirian Wright Russ - Last Filed: 12/01/23 02:54> Home Medications: Propranolol [Inderal*] 40 mg PO BID 30 Days #60 tab 11/23/23 New Medications: Propranolol [Inderal*] 40 mg PO BID 30 Days #60 tab Physician Discharge Instructions: 48-year-old female with history of hypertension presented to the ER with co mplaints of chest pain. She reports onset around 6 PM. Described as substernal. She also reported some left arm and neck pain. She was evaluated by cardiology, stress test completed, echocardiogram normal. Serial troponins negative, she is tolerating diet, stable follow-up with primary care, cardiology after discharge for any change or worsening of Assessment Admitted for chest pain, troponins negative, echocardiogram normal, Migraine, treated with Toradol, Phenergan, She reported allergic reaction to Phenergan, Phenergan listed as an allergy, History of migraines, as needed neurology CT no evidence of cardiac dissection Abdominal ultrasound gallbladder showing gallstones, no acute cholelithiasis MRI IMPRESSION: No acute intracranial process. No evidence of ventriculomegaly or mass effect. Continue home medicines as previously prescribed GOAL: Clear understanding of disease process INSTRUCTIONS: Physician Discharge Instructions: -*-Follow-up with Cardiology in 1 to 2 weeks -Follow-up with PCP in 1 to 2 weeks -Please call Dr. Wright at [phone] if any questions regarding hospital stay -Please call nursing station at [phone] if any nursing or medication questions -Return to the emergency room if symptoms worsen Diet: ADA, low sodium Activity: Fall precautions Followup: Fred Castelan MD [ACTIVE - CAN ADMIT] - 1-2 Weeks Jeferson Valadez MD [Primary Care Provider] - 1-2 Weeks
[2023-11-22] MEDS: ASPIRIN EC 81 MG TAB PO SCH (08:28)
[2023-11-22] MEDS: PIPER TAZO 3.375 GM in NA CHLORIDE 0.9% 100 ML IV SCH (08:29)
--- NOTE | 2023-11-22 10:57 | P.CNS ---
Date of Consult: 11/22/23 Chief Complaint: chest pain History of Present Illness: Patient with PMH of HTN, Family history of CAD report chest pain that started yesterday, felt like pressure in mid chest, no radiation, lasted all day, denies any other cardiac symptoms. Allergies phenytoin [From Dilantin] Allergy (Verified 11/22/23 03:36) Itching/Hives/Rash Home medications list reviewed: Yes Home Medications: Olmesartan Medoxomil 20 mg PO DAILY 11/22/23 - Social History Alcohol use: No CD- Drugs: No Caffeine use: Yes Place of Residence: Home Review of Systems 10-point ROS is otherwise unremarkable Physical Examination Temp Pulse Resp BP Pulse Ox 96.9 F 72 18 137/75 99 11/22/23 08:00 11/22/23 08:00 11/22/23 08:00 11/22/23 08:00 11/22/23 08:00 General: Alert, In no apparent distress HEENT: Atraumatic, PERRLA, Mucous membr. moist/pink, EOMI, Sclerae nonicteric Neck: Supple, 2+ carotid pulse no bruit, No LAD, Without JVD or thyroid abnormality Respiratory: Clear to auscultation bilaterally, Normal air movement Cardiovascular: Regular rate/rhythm, Normal S1 S2 Gastrointestinal: Normal bowel sounds, No tenderness Musculoskeletal: No tenderness Integumentary: No rashes Neurological: Normal gait, Normal speech, Normal tone, Normal affect Lymphatics: No axilla or inguinal lymphadenopathy Laboratory Data (last 24 hrs) 11/21/23 11/21/23 11/21/23 22:53 22:53 22:53 WBC 8.20 Hgb 13.3 Hct 39.9 Plt Count 243 PT 10.6 INR 0.94 Sodium 139 Potassium 3.3 L BUN 13 Creatinine 0.67 Glucose 76 Magnesium 2.1 Total Bilirubin 0.4 AST 13 L ALT 25 Alkaline Phosphatase 55 Lipase 67 - Problems (1) Chest pain Current Visit: Yes Status: Acute Plan: get exercise stress test (cardiolite) get echo ASA 81 mg daily (2) Hypertension Current Visit: Yes Status: Acute Plan: continue patient home medications
--- NOTE | 2023-11-22 12:07 | EKG ---
Test Date: 2023-11-21 Test Time: 22:18:25 Quality Technician: MENDY MEASUREMENT RESULTS: Intervals: Rate: 66 UT: 128 QRSD: 102 QT: 402 QTc: 421 [place]: P: 16 UT: 128 QRS: 90 T: 36 INTERPRETIVE STATEMENTS: Normal sinus rhythm Normal ECG Compared to ECG 07/12/2022 13:42:31 Sinus tachycardia no longer present ST (T wave) deviation no longer present Electronically Signed On 11-22-23 12:06:07 CDT by Fred Castelan
--- NOTE | 2023-11-22 14:41 | ECHO ---
HEIGHT: 5 ft 1 in WEIGHT: 139 lb 12.8 oz DATE OF STUDY: 11/22/[address]: Derick Do MD 2-DIMENSIONAL: YES M.MODE: YES DOPPLER: YES COLOR FLOW: YES TDS: PORTABLE: YES DEFINITY: BUBBLE STUDY: DIAGNOSIS: CHEST PAIN CARDIAC HISTORY: CATHERIZATION: NO SURGERY: NO PROSTHETIC VALVE: NO PACEMAKER: NO MEASUREMENTS (cm) DIASTOLIC (NORMALS) SYSTOLIC (NORMALS) IVSd 1.0 (0.6-1.2) LA Diam 2.2 (1.9-4.0) LVEF 60-65% LVIDd 3.8 (3.5-5.7) LVIDs 2.7 (2.0-3.5) %FS 27% LVPWd 1.1 (0.6-1.2) Ao Diam 2.0 (2.0-3.7) 2 DIMENSIONAL ASSESSMENT: RIGHT ATRIUM: NORMAL LEFT ATRIUM: NORMAL RIGHT VENTRICLE: NORMAL LEFT VENTRICLE: NORMAL TRICUSPID VALVE: NORMAL MITRAL VALVE: NORMAL PULMONIC VALVE: NORMAL AORTIC VALVE: NORMAL PERICARDIAL EFFUSION: NONE AORTIC ROOT: NORMAL LEFT VENTRICULAR WALL MOTION: NORMAL DOPPLER/COLOR FLOW: NORMAL COMMENTS: 1. NORMAL LEFT VENTRICULAR SYSTOLIC FUNCTION, EJECTION FRACTION 60-65%, NORMAL WALL MOTION 2. NORMAL DIASTOLIC FUNCTION TECHNOLOGIST: LAURA ORONA
--- NOTE | 2023-11-22 14:52 | TREADMILL ---
70% H.R.: 120 85% H.R.: 145 90% H.R.: 155 100% H.R.: 172 DX: CHEST PAIN Date of Study: 11/22/2023 Ht: 5' 1 " Wt: 139 lb 12.8 oz Consulting Physician: CIPRIANO MEDICATIONS: TYLENOL, ASPIRIN, NITROSTAT, ZOFRAN HISTORY: 48 YEAR OLD FEMALE WITH COMPLAINTS OF CHEST PAIN. HISTORY OF HYPERTENSION AND PREDIABETES. PHYSICIAL EXAMINATION: RESTING B.P.: 109/74 RESTING H.R.: 67 RESTING EKG: SINUS RHYTHM PROTOCOL: WILLIS ROUTINE EXERCISE TIME: 7:17 MAXIMUM HEART RATE: 160 93 % OF PREDICTED B.P. AT PEAK STRESS: 182/79 H.R. AT 1 MINUTE POST EXERCISE: 124 IMPRESSION: ROUTINE TREADMILL STRESS TEST BEGAN. TARGET HEART RATE REACHED. TEST COMPLETED. NO VENTRICULAR TACHYCARDIA, SUPRAVENTRICULAR TACHYCARDIA, ARRHYTHMIA NOTED. COMPLAINTS OF CHEST TIGHTNESS AND SHORTNESS OF BREATH PRIOR AND THROUGHOUT PROCEDURE. PATIENT STATES THAT IT IS BETTER THAN YESTERDAY.
--- NOTE | 2023-11-22 15:47 | RAD REPORT ---
EXAM DESCRIPTION: XR Chest, 1 View CLINICAL HISTORY: The patient is 48 years old and is Female; CHEST PAIN TECHNIQUE: Frontal view of the chest. COMPARISON: XR Chest dated July 12 2022 FINDINGS: LUNGS: Unremarkable. No consolidation. PLEURAL SPACE: Unremarkable. No pneumothorax. HEART: Unremarkable. No cardiomegaly. MEDIASTINUM: Unremarkable. Normal mediastinal contour. BONES/JOINTS: Unremarkable. No acute fracture. UPPER ABDOMEN: Unremarkable as visualized. IMPRESSION: No acute cardiopulmonary process. Electronically signed by: Flavia George MD 11/22/2023 01:26 AM CDT RP Due to temporary technical issues with the PACS/Fluency reporting system, reports are being signed by the in house radiologist without review as a courtesy to ensure prompt reporting. The interpreting r adiologist is fully responsible for the content of the report.
--- NOTE | 2023-11-22 15:48 | RAD REPORT ---
EXAM DESCRIPTION: CT Angiography Chest, Abdomen and Pelvis With Intravenous Contrast CLINICAL HISTORY: PAIN TECHNIQUE: Axial computed tomographic angiography images of the chest, abdomen and pelvis with intra venous contrast. Sagittal and coronal reformatted images were created and reviewed. This CT exam was performed using one or more of the following dose reduction techniques: automated exposure cont rol, adjustment of the mA and/or kV according to patient size, and/or use of iterative reconstruction technique. MIP reconstructed images were created and reviewed. COMPARISON: Chest CTA and abdomen pelvis CT dated 07/12/2022 FINDINGS: VASCULATURE: Aorta: No acute findings. No aortic aneurysm. No dissection. Pulmonary arteries: Unremarkable as visualized. No pulmonary embolism is identified. Great vessels of aortic arch: No acute findings. No dissection. No arterial occlusion or signif icant stenosis. Celiac trunk and mesenteric arteries: No acute findings. No occlusion or significant stenosis. Renal arteries: No acute findings. No occlusion or significant stenosis. Iliac arteries: No acute findings. No occlusion or significant stenosis. CHEST: Lungs: Unremarkable. No mass. No consolidation. Pleural space: Unremarkable. No significant effusion. No pneumothorax. Heart: Unremarkable. No cardiomegaly. No significant pericardial effusion. ABDOMEN: Liver: Unremarkable. No mass. Gallbladder and bile ducts: Suggestion for gallstones within an otherwise normal-appearing gallblad everett. No ductal dilation. Pancreas: Unremarkable. No ductal dilation. No mass. Spleen: Unremarkable. No splenomegaly. Adrenals: Unremarkable. No mass. Kidneys and ureters: Unremarkable. Normal renal cortical enhancement. No calculi. No hydronephros is. Subcentimeter left renal hypodensity which is too small to characterize. Stomach and bowel: Moderate stool. No bowel obstruction. No appreciable mucosal thickening. PELVIS: Appendix: No findings to suggest acute appendicitis. Bladder: Unremarkable. No mass. Reproductive: Prior hysterectomy. 4.1 cm right ovarian cyst. The left ovary is unremarkable as visu alized. CHEST, ABDOMEN and PELVIS: Intraperitoneal space: Unremarkable. No significant fluid collection. No free air. Bones/joints: Mild multilevel osteophytic lipping. No acute fracture. No dislocation. Soft tissues: Tiny fat-containing umbilical hernia. Lymph nodes: Unremarkable. No enlarged lymph nodes. IMPRESSION: 1. No evidence for thoracic or abdominal aortic aneurysm or dissection. 2. No focal infiltrate. 3. A 4.1 cm right ovarian cyst. No follow-up imaging is recommended. Reference: JACR 2020 Feb;17(2) :[id number] 4. Other findings as above. Electronically signed by: Aliyah Nuñez MD 11/22/2023 01:19 AM CDT Due to temporary technical issues with the PACS/Fluency reporting system, reports are being signed by the in house radiologist without review as a courtesy to ensure prompt reporting. The interpreting r adiologist is fully responsible for the content of the report.
--- NOTE | 2023-11-22 15:48 | RAD REPORT ---
EXAM DESCRIPTION: US ABDOMEN LIMITED CLINICAL HISTORY: Abdominal pain.. COMPARISON: CT Chest abdomen pelvis 11/22/2023. TECHNIQUE: Grayscale, color Doppler ultrasound of the right upper quadrant was performed. FINDINGS: LIVER: Unremarkable. GALLBLADDER: Multiple large shadowing gallstones are seen. No gallbladder wall thickening or perichol ecystic fluid. Negative Ya's sign. COMMON DUCT: The common duct measures 3.1 mm, within normal range. There is no evidence of choledocho lithiasis. PANCREAS: The pancreas is not well visualized due to overlying bowel gas. OTHER: one. IMPRESSION: Cholelithiasis. No sonographic evidence of acute cholecystitis. Electronically signed by: Fay Bailey MD 11/22/2023 01:08 AM CDT RP Due to temporary technical issues with the PACS/Fluency reporting system, reports are being signed by the in house radiologist without review as a courtesy to ensure prompt reporting. The interpreting r adiologist is fully responsible for the content of the report.
[2023-11-22] MEDS ORDERED: SODIUM CHLORIDE 0.9% 10ML INJ IV PRN (16:22)
[2023-11-22] MEDS: KETOROLAC 30 MG/ML INJ IV ONE (16:44)
[2023-11-22] MEDS: PANTOPRAZOLE 40 MG INJ IVP ONE (16:44)
[2023-11-22] MEDS: PROMETHAZINE INJ 25 MG/ML AMP IV ONE (16:44)
[2023-11-23 04:55] LABS: Absolute Eosinophils 0.1 K/uL (0-0.5); Absolute Lymphocytes (CBC) 1.8 K/uL (0.7-4.9); Absolute Monocytes 0.3 K/uL (0.1-1.3); Absolute Neutrophil 3.4 K/uL (1.8-8.0); Basophils % 0.6 % (0-1.3); Hematocrit 36.1 % (36.0-45.0); Lymphocytes % 32.3 % (15.3-44.8); MCH 28.2 pg (27.0-35.0); MCHC 33.2 g/dL (32.0-36.0); MCV 84.8 fL (80-100); MPV 7.6 fL (7.6-11.3); Monocytes % 5.2 % (3.3-12.3); Neutrophils % 60.9 % (41.7-73.7); Nucleated Red Blood Cells % 0.2 % (0-0); Platelets 201 thou/uL (152-406); RBC Red Blood Cell Count 4.25 M/uL (3.86-4.86); Red Cell Distribution Width 13.5 % (12.1-15.2)
[2023-11-23 05:14] LABS: Albumin 3.2 g/dL (3.4-5.0); Albumin/Globulin Ratio 1.1 (1.1-1.8); Anion Gap 10.3 mEq/L (5.0-15.0); Globulin 2.8 g/dL (2.3-3.5); Potassium 3.3 mEq/L (3.5-5.1)
--- NOTE | 2023-11-23 07:14 | RAD REPORT ---
EXAM DESCRIPTION: USCarotid Artery Bilateral11/22/2023 11:31 pm CLINICAL HISTORY: syncope COMPARISON: None FINDINGS: The velocity of the right internal carotid artery equals 96 cm/sec. The right ICA/CCA rati o normal The velocity of the left internal carotid artery equals 102 cm/sec. The left ICA/CCA ratio normal Mild plaque is present within the carotid arteries. The vertebral arteries demonstrate antegrade flow NASCET criteria used. Mild 0-49% stenosis Moderate 50-69% stenosis Severe 70-99% stenosis IMPRESSION: No significant vascular abnormality is displayed
--- NOTE | 2023-11-23 09:50 | P.PN ---
Subjective Date of Service: 11/23/23 Chief Complaint: chest pain Subjective: No new changes, No C/O voiced, Tolerating diet, Ambulating, Improving Review of Systems 10-point ROS is otherwise unremarkable Physical Examination - Vital Signs Temperature: 97.9 F Blood Pressure: 128/72 Pulse: 63 Respirations: 16 Pulse Ox (%): 96 - Physical Exam General: Alert, In no apparent distress HEENT: Atraumatic, PERRLA, EOMI Neck: Supple, JVD not distended Respiratory: Clear to auscultation bilaterally, Normal air movement Cardiovascular: Regular rate/rhythm, Normal S1 S2 Gastrointestinal: Normal bowel sounds, No tenderness Musculoskeletal: No tenderness Integumentary: No rashes Neurological: Normal speech, Normal tone, Normal affect Lymphatics: No axilla or inguinal lymphadenopathy - Studies Medications List Reviewed: Yes Assessment And Plan - Current Problems (Diagnosis) (1) Chest pain Current Visit: Yes Status: Acute Plan: Exercise only stress test is done and it is negative Echo is normal ASA 81 mg daily (2) Hypertension Current Visit: Yes Status: Acute Plan: Patient having migraine headaches with Olmesartan, tried Norvasc in the past which did not help her BP Start Propranolol 40 mg po BID
[2023-11-23] MEDS: POTASSIUM CL SA 10 MEQ TAB PO ONE (10:00)
[2023-11-23] MEDS: PROPRANOLOL HCL 60 MG SA CAP PO ONE (10:03)
[2023-11-23 12:26] VITALS: O2SAT 98
--- NOTE | 2023-11-23 15:55 | RAD REPORT ---
EXAM DESCRIPTION: MRI - Brain Wo Cont - 11/23/2023 1:54 pm CLINICAL HISTORY: Syncope COMPARISON: None TECHNIQUE: Multiplanar multisequence MRI of the brain performed without IV contrast. FINDINGS: No evidence of acute infarct or other diffusion signal abnormality. No evidence of acute intracranial hemorrhage or abnormal extra-axial fluid collections. Ventricular caliber within normal for age. Midline structures are unremarkable. No white matter signal abnormalities. No mass effect or midline shift. Major vascular flow voids are preserved. Mastoid air cells and paranasal sinuses are clear. IMPRESSION: No acute intracranial process. No evidence of ventriculomegaly or mass effect.
[2023-11-23 17:00] VITALS: BP 133/72; TEMP 97.8
== END 2023-11-23 17:51 | disposition home or self-care (01) | DRG 313 ==
LOC: ER 22:01 → 2ND 11-22 04:26 → OBSVTOIN 11-23 11:52
PROVIDERS: ADMIT Internal Medicine; ATTEND Hospitalist
DX: R07.89 Other chest pain (principal); I10 Essential (primary) hypertension; E87.6 Hypokalemia; K80.20 Calculus of gallbladder without cholecystitis without obstruction; Z88.8 Allergy status to other drugs, medicaments and biological substances; Z90.711 Acquired absence of uterus with remaining cervical stump
CPT/HCPCS: 36415; 70551; 71045; 71275; 74175; 76705; 80048; 80053; 80061; 80076; 81001; 83690; 83735; 83880; 84132; 84484; 85025; 85610; 93005; 93017; 93306; 93880; 96361; 96365; 96366; 96375; 99285; G0378; J2405; J2470; J2543; J2550; J7030; J7040; Q9967

== ENCOUNTER 2024-12-04 17:01 | Emergency (ER) | payer BC, OTHER ==
[2024-12-04] MEDS ORDERED: ONDANSETRON 4 MG/2 ML VIAL ONE (17:32)
[2024-12-04] MEDS ORDERED: KETOROLAC 30 MG/ML INJ ONE (17:33)
[2024-12-04] MEDS ORDERED: NA CHLORIDE 0.9% 1,000 ML ONE (17:33)
[2024-12-04] MEDS ORDERED: FAMOTIDINE 20 MG/2 ML VIAL IV ONE (17:33)
[2024-12-04 17:38] LABS: Absolute Lymphocytes (CBC) 2.4 K/uL (0.7-4.9); Hematocrit 38.1 % (36.0-45.0); Hemoglobin 12.9 g/dL (12.0-15.0); MCH 27.5 pg (27.0-35.0); MCHC 33.9 g/dL (32.0-36.0); MCV 81.1 fL (80-100); MPV 8.2 fL (7.6-11.3); Nucleated RBC Absolute Count 0.0 (0-0); Nucleated Red Blood Cells % 0.0 % (0-0); RBC Red Blood Cell Count 4.70 M/uL (3.86-4.86); White Blood Count 10.00 thou/uL (4.3-10.9)
[2024-12-04 17:56] LABS: ALT/SGPT 20 U/L (13-56); Albumin 3.7 g/dL (3.4-5.0); Albumin/Globulin Ratio 1.2 (1.1-1.8); Alkaline Phosphatase 51 U/L (45-117); Anion Gap 7.7 mEq/L (5.0-15.0); BUN Blood Urea Nitrogen 15 mg/dL (7-18); Globulin 3.2 g/dL (2.3-3.5); Glucose Level 80 mg/dL (74-106); Lipase 62 U/L (13-75); Potassium 3.7 mEq/L (3.5-5.1)
[2024-12-04 17:57] LABS: AST/SGOT < 10 U/L (15-37)
--- NOTE | 2024-12-04 18:47 | RAD REPORT ---
Abdomen Exam Limited: 12/04/2024 6:39 PM CLINICAL HISTORY: ABD PAIN STUDY: Limited right upper quadrant ultrasound of abdomen. COMPARISON: 11/21/2023 FINDINGS: Liver: Limited evaluation but grossly unremarkable. Bile ducts: No intrahepatic or extrahepatic biliary ductal dilatation. Common bile duct measures 2 mm. Gallbladder: Contracted gallbladder with gallstones. No sonographic Ya sign. No pericholecystic f luid. IMPRESSION: Cholelithiasis but without sonographic evidence of acute cholecystitis. No biliary ductal dilatation.
[2024-12-04 18:52] LABS: Differential Total Cells Count 100; Segmented Neutrophils 44 % (40-80)
[2024-12-04 18:53] LABS: Blood Morphology Comment NOT SEEN (NOT SEEN)
--- NOTE | 2024-12-04 18:55 | ER ---
Nurse's Notes [facility] Name: Antonio Keyes Age: 49 yrs Sex: Female : 1975 Arrival Date: 12/04/2024 Time: 17:01 Bed 14 Private MD: Diagnosis: Other cholelithiasis without obstruction Presentation: 12/04 17:19 Chief complaint: Upper abdominal pain that radiates to the back and nausea x 2 days. hb Coronavirus screen: At this time, the client does not indicate any symptoms associated with coronavirus-19. Ebola Screen: No symptoms or risks identified at this time. Initial Sepsis Screen: Does the patient meet any 2 criteria? No. Patient's initial sepsis screen is negative. Does the patient have a suspected source of infection? No. Patient's initial sepsis screen is negative. Risk Assessment: Do you want to hurt yourself or someone else? Patient reports no desire to harm self or others. Onset of symptoms was December 03, 2024. 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 - Infectious Disease History:: Denies. - Social history:: Smoking status: Patient denies any tobacco usage or history of. Screenin:20 [facility] ED Fall Risk Assessment (Adult) History of falling in the last 3 months, me1 including since admission No falls in past 3 months (0 pts) Confusion or Disorientation No (0 pts) Intoxicated or Sedated No (0 pts) Impaired Gait No (0 pts) Mobility Assist Device Used No (0 pt) Altered Elimination No (0 pt) Score/Fall Risk Level 0 - 2 = Low Risk Maintained a safe environment, Provided non-skid footwear, Hourly rounding (assess needs \T\ fall precautionary measures) done. Abuse screen: Denies threats or abuse. Nutritional screening: No deficits noted. Tuberculosis screening: No symptoms or risk factors identified. Assessment: 17:20 General: Appears uncomfortable, well groomed, well developed, well nourished, Behavior me1 is calm, cooperative, appropriate for age, Reports Upper abdominal pain that radiates to the back and nausea x 2 days. Pain: Complains of pain in right upper quadrant and epigastric area Pain radiates to right subscapular area Pain currently is 7 out of 10 on a pain scale. Quality of pain is described as sharp, shooting, Pain began 2-3 days ago. Is continuous. Neuro: Level of Consciousness is awake, alert, obeys commands, Oriented to person, place, time, situation, Appropriate for age. Cardiovascular: Patient's skin is warm and dry. Respiratory: Airway is patent Respiratory effort is even, unlabored, Respiratory pattern is regular, symmetrical. GI: Abdomen is non-distended, Bowel sounds present X 4 quads. Abd is soft X 4 quads Reports upper abdominal pain, nausea, since 2 days ago. Pain is worse after eating. : No signs and/or symptoms were reported regarding the genitourinary system. EENT: No signs and/or symptoms were reported regarding the EENT system. Derm: Skin is intact, is healthy with good turgor, Skin is normal. Musculoskeletal: Circulation, motion, and sensation intact. Range of motion: intact in all extremities. Vital Signs: 17:19 BP 134 / 84; Pulse 65; Resp 16; Temp 98.1(O); Pulse Ox 100% on R/A; Weight 65.77 kg; hb Height 5 ft. 2 in. ; Pain 8/10; 18:00 BP 119 / 71; Pulse 63; Resp 15; Pulse Ox 99% ; me1 18:45 BP 120 / 70; Pulse 63; Resp 16; Temp 98.2; Pulse Ox 100% ; me1 17:19 Body Mass Index 26.52 (65.77 kg, 157.48 cm) hb 17:19 Pain Scale: Adult hb ED Course: 17:06 Patient arrived in ED. im 17:10 Wendy Laws FNP-C is PHCP. kb 17:10 Dalton Martinez MD is Attending Physician. kb 17:20 Patient has correct armband on for positive identification. Bed in low position. Call me1 light in reach. Side rails up X2. Provided Education on: POC. Verbalized understanding.. Client placed on continuous cardiac and pulse oximetry monitoring. NIBP monitoring applied. Pulse ox on. NIBP on. 17:20 No provider procedures requiring assistance completed. me1 17:21 Triage completed. hb 17:21 Arm band placed on. hb 17:22 Carmita Womack, RN is Primary Nurse. me1 17:29 CBC with Diff Sent. me1 17:29 CMP Sent. me1 17:29 Lipase Sent. me1 17:29 Initial lab(s) drawn, by mt, sent to lab. Inserted saline lock: 22 gauge in right me1 antecubital area, using aseptic technique. 18:41 Abdomen Limited US In Process Unspecified. EDMS 19:04 IV discontinued, intact, bleeding controlled, No redness/swelling at site. Pressure me1 dressing applied. Administered Medications: 17:46 Drug: Famotidine IVP 20 mg IVP once; dilute with 10 mL 0.9% NaCl; give over 2 minutes me1 Route: IVP; Site: right antecubital; 18:57 Follow up: Response: No adverse reaction me1 17:46 Drug: Ondansetron IVP 4 mg IVP once; over 2 minutes Route: IVP; Site: right antecubital;me1 18:57 Follow up: Response: No adverse reaction; Nausea is decreased me1 17:46 Drug: NS 0.9% IV 1000 ml IV at 1 bolus Per protocol; to be given as a bolus over 60 me1 minutes Route: IV; Rate: 1 bolus; Site: right antecubital; 18:57 Follow up: Response: No adverse reaction; IV Status: Completed infusion; IV Intake: me1 1000ml 17:47 Drug: TORadol - Ketorolac IVP 15 mg IVP once Route: IVP; Site: right antecubital; me1 18:57 Follow up: Response: No adverse reaction; Pain is decreased me1 Medication: 17:20 VIS not applicable for this client. me1 Intake: 18:57 IV: 1000ml; Total: 1000ml. me1 Outcome: 18:54 Discharge ordered by . leonila 19:04 Discharged to home ambulatory, with family, me1 19:04 Condition: stable 19:04 Discharge instructions given to patient, Instructed on discharge instructions, follow up and referral plans. medication usage, Demonstrated understanding of instructions, follow-up care, medications, Prescriptions given X 2, 19:05 Patient left the ED. me1 Signatures: Dispatcher [employer] Wendy Gregory, FLAT LOCK OPERATOR-C FLAT LOCK OPERATOR-Yuliya Rob RN RN Barbara Holbrook Michelle RN RN me1 Corrections: (The following items were deleted from the chart) 18:32 17:19 Chief complaint: Upper abdominal pain that radiates to the back and nausea x 2 me1 days hb
--- NOTE | 2024-12-04 18:55 | EDPHYS ---
Physician Documentation [facility] Name: Antonio Keyes Age: 49 yrs Sex: Female : 1975 Arrival Date: 12/04/2024 Time: 17:01 Bed 14 Private MD: ED Physician Dalton Martinez HPI: 12/04 17:53 This 49 yrs old Female presents to ER via Ambulatory with complaints of kb Abdominal Pain. 17:53 Patient is a 49-year-old female who presents for upper abdominal pain that started over kb 7 days ago. States has been intermittent. Reports pain is worse after she eats and she feels bloated afterwards. Reports nausea and diarrhea. Denies fever, vomiting. 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 - Infectious Disease History:: Denies. - Social history:: Smoking status: Patient denies any tobacco usage or history of. ROS: 17:53 Constitutional: As per HPI kb Exam: 17:53 Constitutional: This is a well developed, well nourished patient who is awake, alert, kb and in no acute distress. Head/Face: Normocephalic, atraumatic. ENT: Moist Mucous membranes Cardiovascular: Regular rate Respiratory: Respirations even and unlabored. No increased work of breathing. Talking in full sentences Skin: Warm, dry with normal turgor. Normal color. MS/ Extremity: Pulses equal, no cyanosis. Neurovascular intact. Full, normal range of motion. Neuro: Awake and alert, GCS 15, oriented to person, place, time, and situation. 17:53 Abdomen/GI: Inspection: abdomen appears normal, Bowel sounds: normal, Palpation: soft, in all quadrants, mild abdominal tenderness, in the epigastric area and right upper quadrant, Vital Signs: 17:19 BP 134 / 84; Pulse 65; Resp 16; Temp 98.1(O); Pulse Ox 100% on R/A; Weight 65.77 kg; hb Height 5 ft. 2 in. ; Pain 8/10; 18:00 BP 119 / 71; Pulse 63; Resp 15; Pulse Ox 99% ; me1 18:45 BP 120 / 70; Pulse 63; Resp 16; Temp 98.2; Pulse Ox 100% ; me1 17:19 Body Mass Index 26.52 (65.77 kg, 157.48 cm) hb 17:19 Pain Scale: Adult hb MDM: 17:10 Medical Screening Exam initiated kb 17:53 Differential diagnosis: cholecystitis, Cholelithiasis, gastroesophageal reflux disease, kb non-specific abd pain, pancreatitis. Data reviewed: vital signs, nurses notes. 18:50 Consideration of Admission/Observation Escalation of care including kb admission/observation considered. admission considered but labs reassuring, US positive for cholelithiasis without cholecystitis. Counseling: I had a detailed discussion with the patient and/or guardian regarding the historical points, exam findings, and any diagnostic results supporting the discharge/admit diagnosis, lab results, radiology results, the need for outpatient follow up, a general surgeon, to return to the emergency department if symptoms worsen or persist or if there are any questions or concerns that arise at home. 12/04 17:12 Order name: CBC with Diff; Complete Time: 18:54 kb 12/04 17:12 Order name: CMP; Complete Time: 17:57 kb 12/04 17:12 Order name: Lipase; Complete Time: 17:57 kb 12/04 17:40 Order name: Manual Differential; Complete Time: 18:54 EDMS 12/04 17:12 Order name: Abdomen Limited US; Complete Time: 18:50 kb 12/04 17:12 Order name: IV Saline Lock; Complete Time: 17:29 kb 12/04 17:12 Order name: Labs collected and sent; Complete Time: 17:29 kb Administered Medications: 17:46 Drug: Famotidine IVP 20 mg IVP once; dilute with 10 mL 0.9% NaCl; give over 2 minutes me1 Route: IVP; Site: right antecubital; 18:57 Follow up: Response: No adverse reaction me1 17:46 Drug: Ondansetron IVP 4 mg IVP once; over 2 minutes Route: IVP; Site: right antecubital;me1 18:57 Follow up: Response: No adverse reaction; Nausea is decreased me1 17:46 Drug: NS 0.9% IV 1000 ml IV at 1 bolus Per protocol; to be given as a bolus over 60 me1 minutes Route: IV; Rate: 1 bolus; Site: right antecubital; 18:57 Follow up: Response: No adverse reaction; IV Status: Completed infusion; IV Intake: me1 1000ml 17:47 Drug: TORadol - Ketorolac IVP 15 mg IVP once Route: IVP; Site: right antecubital; me1 18:57 Follow up: Response: No adverse reaction; Pain is decreased me1 Disposition Summary: 12/04/24 18:54 Discharge Ordered Notes: Location: Home kb Condition: Stable kb Diagnosis - Other cholelithiasis without obstruction kb Followup: kb - With: Emergency Department - When: As needed - Reason: Worsening of condition Followup: kb - With: Private Physician - When: 2 - 3 days - Reason: Recheck today's complaints, Continuance of care, Re-evaluation by your physician Discharge Instructions: - Discharge Summary Sheet kb - Cholelithiasis, [id number] kb Forms: - Medication Reconciliation Form kb - Antibiotic Education kb - Prescription Opioid Use kb - Patient Portal Instructions kb - Leadership Thank You Letter kb Prescriptions: - Zofran 4 mg Oral tablet - take 1 tablet ORAL route every 6 hours As needed; 12 tablet; Refills: 0, kb Product Selection Permitted - dicyclomine 20 mg Oral tablet - take 1 tablet ORAL route 4 times per day As needed; 20 tablet; Refills: 0, kb Product Selection Permitted Signatures: Dispatcher [employer] Wendy Gregory FNP-C FNP-Ckb Baxter, Heather, RN RN Carmita Womack RN RN me1
[2024-12-04 19:41] VITALS: BP 120/70; TEMP 98.2; O2SAT 100
== END 2024-12-04 19:05 | disposition home or self-care (01) ==
LOC: ER 17:01
DX: K80.80 Other cholelithiasis without obstruction (principal)
CPT/HCPCS: 96361; 85025; 36415; 83690; 80053; 76705; 96375; 96374; 99284; J2405; J7030